=== PATIENT | female | born 1950 | race Caucasian/White ===

== ENCOUNTER 2019-11-08 12:00 | Emergency (ER) | payer MEDICARE, SELFPAY ==
[~2019-11-08] VITALS: Ht 157.5 cm; Wt 75.0 kg
--- NOTE | 2019-11-08 12:01 | NUR ---
PATIENT ARRIVES SOB WITH HER OWN OXYGEN THAT SHE WEARS AROUND CLOCK 2 L COPD HISTORY. SHE IS ANXIOUS AND NOT COOPERATIVE KEEPING MASK ON. SHE COUGHS FREQUENTLY AND IS IN TRIPOD BREATHING POSITION AND USES ACCESORY MUSCLES, 94% ON TWO LITERS. EKG IN PROGRESS, ON MONITOR. RECENT HISTORY OF FREQUENT [place] VISITS WITH ABBE AND PREDNISONE THAT SHE IS ON NOW FOR PNA ACCORDING TO MEDICS AND HER.
--- NOTE | 2019-11-08 12:21 | NUR ---
PATIENT IN BED, RAILS UP. GOT HER TV CONTROL AND EXPLAINED THAT WE NEED HER TO STAY IN BED WHILE WE RUN ALL THE BLOODWORK RECENTLY SENT TO LAB AND COMPLETE OUR TESTS. SHOWS UNDERSTANDING. SHE IS CALMING DOWN AND MUCH MORE COOPERATIVE, AND THANKED STAFF FOR GETTING IV AFTER SHOWING ME HER BRUISED LEFT ARM FROM MULTIPLE IV ATTEMPTS FROM HER [place] VISIT ACCORDING TO HER. SHE IS ON OXYGEN, AND ON MONITOR. AOX4.
[2019-11-08 12:32] LABS: BASOPHILS # (AUTO) 0.12 x10^3/uL (0-0.1); BASOPHILS % (AUTO) 1 % (0-1); EOSINOPHILS % (AUTO) 0 % (1-7); LYMPHOCYTES # (AUTO) 1.02 x10^3/uL (1-3.4); LYMPHOCYTES % (AUTO) 6 % (22-44); MD NO; MEAN CORPUSCULAR HGB CONC 32.7 g/dL (32.4-35.8); MEAN CORPUSCULAR VOLUME 97.9 fL (80-100); MEAN PLATELET VOLUME 8.2 fL (7.4-10.4); MONOCYTES # (AUTO) 0.13 x10^3/uL (0.2-0.8); MONOCYTES % (AUTO) 1 % (2-9); NEUTROPHILS # (AUTO) 14.87 x10^3/uL (1.8-6.8); NEUTROPHILS % (AUTO) 92 % (42-75); PLATELET COUNT 386 x10^3/uL (130-400); RED BLOOD COUNT 4.66 x10^6/uL (3.82-5.3); RED CELL DISTRIBUTION WIDTH 15.6 % (9.6-15.2)
[2019-11-08 12:39] LABS: CALCIUM 8.9 mg/dL (8.5-10.1); CHLORIDE 101 mmol/L (98-107)
[2019-11-08 12:48] LABS: ALANINE AMINOTRANSFERASE 129 U/L (12-78); ALBUMIN 3.1 g/dL (3.4-5.0); ALKALINE PHOSPHATASE 77 U/L (45-117); ANION GAP 7 mmol/L (5-15); BILIRUBIN,TOTAL 0.5 mg/dL (0.2-1.0); CREATININE 0.73 mg/dL (0.55-1.02); TOTAL PROTEIN 6.6 g/dL (6.4-8.2); TROPONIN I < 0.015 ng/mL (0.000-0.045)
--- NOTE | 2019-11-08 13:29 | NUR ---
PT UNABLE TO LAY DOWN ON CT TABLE FOR SCAN-SENT BACK TO HER ROOM
--- NOTE | 2019-11-08 13:32 | NUR ---
PATIENT TAKEN BY TECH TO CT SCAN. PATIENT REFUSED CT SCAN STATING SHE CAN'T LAY ON HER BACK. LET MD'S KNOW
[2019-11-08 13:43] VITALS: BP 130/78
--- NOTE | 2019-11-08 14:33 | NUR ---
DISCHARGE REVIEWED, SHOWS UNDERSTANDING. HELPED EXPLAIN COPD TO PATIENT AND SHE IS ANGRY THAT WE ARE NOT "FIXING" HER LUNGS. TRIED TO HELP EXPLAIN THAT HEALTHY CHOICES AND LIFESTYLE CAN HELP, AND GOT HER AN RX FOR PREDNISONE, AND NO SMOKING.
--- NOTE | 2019-11-08 14:51 | NUR ---
PATIENT NOW STATING HER ESTER DOESN'T DRIVE AND SHE HAS NO RIDE HOME, PLUS SHE IS NOW ADDING THAT SHE DID NOT BRING HER HOME OXYGEN WITH HER, SO PLACED PATIENT BACK ON OXYGEN AND ON MONITOR AND TALK TO MD ABOUT SITUATION.
--- NOTE | 2019-11-08 14:54 | NUR ---
REPORT RECEIVED FROM ANGELIQUE NAJERA. PLAN OF CARE DISCUSSED
--- NOTE | 2019-11-08 14:57 | NUR ---
PATIENT REFUSING [facility] TO GET HOME AND FEELS SHE WILL BE FINE TO GET HOME WITH CAC VOUCHER AND NO OXYGEN. GOT A WHEELCHAIR WITH OXYGEN AND A TECH AND WILL HAVE PATIENT TAKEN ALL THE WAY TO [facility] WITH OXYGEN AND WAIT IN WAITING ROOM WITH OXYGEN UNTIL CAB ARRIVES.
== END 2019-11-08 15:07 | disposition home or self-care (01) ==
LOC: ED 13:22
DX: J44.1 Chronic obstructive pulmonary disease with (acute) exacerbation (principal); R06.00 Dyspnea, unspecified; R94.31 Abnormal electrocardiogram [ECG] [EKG]; Z87.891 Personal history of nicotine dependence
CPT/HCPCS: 36415; 71045; 80053; 83605; 83880; 84145; 84484; 85025; 87040; 93005; 99285

== ENCOUNTER 2019-11-22 09:02 | Inpatient (IN) | payer MEDICARE ==
[~2019-11-22] VITALS: Ht 157.5 cm; Wt 110.7 kg
--- NOTE | 2019-11-22 09:19 | NUR ---
task rn: pt to room and changing into gown.
[2019-11-22] MEDS ORDERED: SODIUM CHLORIDE FLUSH 10ML SYR IVF ONE (09:30)
[2019-11-22 10:01] LABS: MEAN CORPUSCULAR HEMOGLOBIN 32.6 pg (27.0-34.8); MEAN CORPUSCULAR HGB CONC 32.8 g/dL (32.4-35.8); MEAN CORPUSCULAR VOLUME 99.4 fL (80-100); MEAN PLATELET VOLUME 7.9 fL (7.4-10.4); PLATELET COUNT 299 x10^3/uL (130-400); RED BLOOD COUNT 4.65 x10^6/uL (3.82-5.3); RED CELL DISTRIBUTION WIDTH 16.1 % (9.6-15.2)
[2019-11-22 10:06] LABS: INTERNATIONAL NORMALIZED RATIO 0.93 (0.93-1.1); PROTHROMBIN TIME 9.9 Seconds (9.6-11.5)
[2019-11-22 10:09] LABS: ALANINE AMINOTRANSFERASE 52 U/L (12-78); ALBUMIN 2.9 g/dL (3.4-5.0); ANION GAP 6 mmol/L (5-15); CALCIUM 9.2 mg/dL (8.5-10.1); CHLORIDE 102 mmol/L (98-107); CREATININE 0.85 mg/dL (0.55-1.02)
[2019-11-22 10:13] LABS: ALKALINE PHOSPHATASE 71 U/L (45-117); BILIRUBIN,TOTAL 0.8 mg/dL (0.2-1.0); TOTAL PROTEIN 6.3 g/dL (6.4-8.2); TROPONIN I < 0.015 ng/mL (0.000-0.045)
[2019-11-22 10:27] LABS: BASOPHILS # (AUTO) 0.11 x10^3/uL (0-0.1); BASOPHILS % (AUTO) 1 % (0-1); EOSINOPHILS # (AUTO) 0.67 x10^3/uL (0-0.4); EOSINOPHILS % (AUTO) 5 % (1-7); LYMPHOCYTES # (AUTO) 0.93 x10^3/uL (1-3.4); LYMPHOCYTES % (AUTO) 6 % (22-44); MONOCYTES # (AUTO) 0.61 x10^3/uL (0.2-0.8); MONOCYTES % (AUTO) 4 % (2-9); NEUTROPHILS # (AUTO) 12.79 x10^3/uL (1.8-6.8); NEUTROPHILS % (AUTO) 85 % (42-75)
[2019-11-22 10:31] LABS: MD SCAN
--- NOTE | 2019-11-22 10:33 | NUR ---
medicated as ordered, assistance provided to bedside commode
--- NOTE | 2019-11-22 11:52 | NUR ---
PT RESTING IN BED, BLANKET PROVIDED.
[2019-11-22] MEDS ORDERED: SODIUM CHLORIDE 0.9% 1,000ML IVBOLUS ONE (12:00)
[2019-11-22] MEDS ORDERED: CEFTRIAXONE PMX 1GM/50ML 50 ML IVPB ONE (12:00)
[2019-11-22] MEDS ORDERED: CEFTRIAXONE PMX 1GM/50ML 50 ML ONE (12:15)
--- NOTE | 2019-11-22 12:21 | NUR ---
lab at bedside for blood cultures
--- NOTE | 2019-11-22 12:51 | NUR ---
REPORT CALLED TO KHADIJAH MERINO
[2019-11-22] MEDS ORDERED: ACETAMINOPHEN 325 MG TABLET PO PRN (13:00)
[2019-11-22] MEDS ORDERED: ONDANSETRON 2MG/ML, 2ML IVPush PRN (13:00)
[2019-11-22] MEDS ORDERED: hydrALAzine 20 MG/ML, 1ML IVPush PRN (13:00)
[2019-11-22] MEDS ORDERED: IBUPROFEN 600 MG TABLET PO PRN (13:00)
[2019-11-22] MEDS ORDERED: ALBUTEROL SULFATE 2.5 MG/3 ML NPPB PRN (13:30)
[2019-11-22 19:08] VITALS: BP 96/70
[2019-11-22] MEDS: FAMOTIDINE 20 MG TABLET PO SCH (20:39)
[2019-11-22] MEDS ORDERED: FAMOTIDINE 20 MG/2 ML IVPush SCH (21:00)
[2019-11-22 23:21] LABS: MICROSCOPIC NOT IND
[2019-11-23 01:33] VITALS: BP 128/82
[2019-11-23 05:49] LABS: ANION GAP 6 mmol/L (5-15); CALCIUM 8.6 mg/dL (8.5-10.1); CHLORIDE 105 mmol/L (98-107)
[2019-11-23 05:52] LABS: BASOPHILS % (AUTO) 0 % (0-1); EOSINOPHILS # (AUTO) 0.05 x10^3/uL (0-0.4); EOSINOPHILS % (AUTO) 0 % (1-7); LYMPHOCYTES % (AUTO) 4 % (22-44); MD NO; MEAN CORPUSCULAR HEMOGLOBIN 32.4 pg (27.0-34.8); MEAN CORPUSCULAR VOLUME 98.4 fL (80-100); MEAN PLATELET VOLUME 8.1 fL (7.4-10.4); MONOCYTES # (AUTO) 0.13 x10^3/uL (0.2-0.8); MONOCYTES % (AUTO) 1 % (2-9); NEUTROPHILS # (AUTO) 13.22 x10^3/uL (1.8-6.8); NEUTROPHILS % (AUTO) 94 % (42-75); PLATELET COUNT 295 x10^3/uL (130-400); RED BLOOD COUNT 4.12 x10^6/uL (3.82-5.3); RED CELL DISTRIBUTION WIDTH 16.4 % (9.6-15.2)
[2019-11-23 06:01] LABS: CREATININE 0.72 mg/dL (0.55-1.02)
[2019-11-23] MEDS: FAMOTIDINE 20 MG TABLET PO SCH ×2 (10:05→20:03)
[2019-11-23 15:19] VITALS: BP 108/72
[2019-11-23 19:25] VITALS: BP 121/78
[2019-11-23] MEDS ORDERED: FAMOTIDINE 20 MG TABLET PO SCH (21:00)
[2019-11-23] MEDS: INSULIN LISPRO 100 UNITS/ML, PEN SQ-INSULIN SCH (21:14)
[2019-11-24 01:58] VITALS: BP 136/87
[2019-11-24] MEDS: INSULIN LISPRO 100 UNITS/ML, PEN SQ-INSULIN SCH ×4 (07:00→20:26)
[2019-11-24 07:32] VITALS: BP 123/77
[2019-11-24] MEDS: FAMOTIDINE 20 MG TABLET PO SCH ×2 (07:35→20:10)
[2019-11-24] MEDS: ALBUTEROL SULFATE 2.5 MG/3 ML NPPB SCH ×2 (13:50→19:16)
[2019-11-24 14:40] VITALS: BP 107/68
[2019-11-24] MEDS ORDERED: ALBUTEROL/IPRATROPIUM 2.5MG/0.5MG, 3 ML IPPB PRN (17:30)
[2019-11-24] MEDS: BUDESONIDE 0.5 MG/2 ML INHA INH SCH (19:16)
[2019-11-24 20:05] VITALS: BP 104/65
[2019-11-25 03:45] VITALS: BP 103/82
[2019-11-25] MEDS: ALBUTEROL SULFATE 2.5 MG/3 ML NPPB SCH ×3 (06:46→18:49)
[2019-11-25] MEDS: BUDESONIDE 0.5 MG/2 ML INHA INH SCH ×2 (06:46→18:49)
[2019-11-25] MEDS: INSULIN LISPRO 100 UNITS/ML, PEN SQ-INSULIN SCH ×4 (07:00→20:21)
[2019-11-25] MEDS: FAMOTIDINE 20 MG TABLET PO SCH ×2 (07:32→20:11)
[2019-11-25 07:39] VITALS: BP 117/72
[2019-11-25 14:30] VITALS: BP 134/81
[2019-11-25 19:52] VITALS: BP 116/74
[2019-11-26] MEDS: ALBUTEROL SULFATE 2.5 MG/3 ML NPPB SCH ×3 (00:09→14:30)
[2019-11-26 02:35] VITALS: BP 120/77
[2019-11-26] MEDS: INSULIN LISPRO 100 UNITS/ML, PEN SQ-INSULIN SCH ×2 (07:00→11:00)
[2019-11-26] MEDS: FAMOTIDINE 20 MG TABLET PO SCH (07:29)
[2019-11-26] MEDS: BUDESONIDE 0.5 MG/2 ML INHA INH SCH (07:30)
[2019-11-26 08:06] VITALS: BP 133/85
[2019-11-26 13:19] VITALS: BP 135/85
[2019-11-26] MEDS ORDERED: ALBU2.5V NPPB (15:55)
[2019-11-26] MEDS ORDERED: PRED20TA PO (15:55)
[2019-11-26] MEDS ORDERED: BUDE0.5A INH (15:55)
[2019-11-26] MEDS ORDERED: FAMO20TA7 PO (15:55)
== END 2019-11-26 16:55 | disposition home or self-care (01) | DRG 607 ==
LOC: ED 10:27 → EDIP 11:58 → 3N 13:30
PROVIDERS: ADMIT Hospitalist; ATTEND Hospitalist
DX: L27.0 Generalized skin eruption due to drugs and medicaments taken internally (principal); Z68.41 Body mass index [BMI] 40.0-44.9, adult; I89.0 Lymphedema, not elsewhere classified; E66.9 Obesity, unspecified; D72.829 Elevated white blood cell count, unspecified; J44.9 Chronic obstructive pulmonary disease, unspecified; T36.8X5A Adverse effect of other systemic antibiotics, initial encounter; I51.7 Cardiomegaly; Z99.81 Dependence on supplemental oxygen; Z87.891 Personal history of nicotine dependence; Z88.6 Allergy status to analgesic agent; Z88.0 Allergy status to penicillin
CPT/HCPCS: 36415; 71045; 80048; 80053; 81003; 82962; 83605; 83880; 84443; 84484; 85025; 85610; 87040; 94640; 96374; 99285; G0378; J0696; J7613; J7626; J1815; J7030; J7512

== ENCOUNTER 2019-12-01 16:58 | Emergency (ER) | payer MEDICARE ==
[~2019-12-01] VITALS: Ht 157.5 cm; Wt 98.0 kg
[~2019-12-01 16:58] MED LIST: ALBU2.5V NPPB; BUDE0.5A INH; FAMO20TA7 PO; PRED20TA PO
--- NOTE | 2019-12-01 17:09 | NUR ---
PT BIB EMS FOR SOB. PT HAS HISTORY OF COPD AND ASTHMA AND SAYS HER INHALERS WERE NOT HELPING HER. PT NORMALLY WEARS 2 LITERS 02 23/01 FOR THE PAT 4 MONTHS. PT IS CURRERNTLY 95% ON 2LITERS. PT WAS HOSPITALIZED A FEW MONTHS AGO FOR COPD EXACERBATION AND SAYS THIS FEELS SIMILAR TO THAT. PT IS CONNECTED TO THE MONITORING EQUIPMENT. BLANKET PROVIDED.
[2019-12-01 17:44] VITALS: BP 99/71
[2019-12-01 18:14] LABS: BASOPHILS # (AUTO) 0.06 x10^3/uL (0-0.1); BASOPHILS % (AUTO) 1 % (0-1); EOSINOPHILS # (AUTO) 0.28 x10^3/uL (0-0.4); EOSINOPHILS % (AUTO) 2 % (1-7); LYMPHOCYTES # (AUTO) 2.23 x10^3/uL (1-3.4); LYMPHOCYTES % (AUTO) 17 % (22-44); MD NO; MEAN CORPUSCULAR HEMOGLOBIN 32.5 pg (27.0-34.8); MEAN CORPUSCULAR HGB CONC 33.3 g/dL (32.4-35.8); MEAN CORPUSCULAR VOLUME 97.7 fL (80-100); MEAN PLATELET VOLUME 7.7 fL (7.4-10.4); MONOCYTES % (AUTO) 7 % (2-9); NEUTROPHILS # (AUTO) 9.35 x10^3/uL (1.8-6.8); NEUTROPHILS % (AUTO) 73 % (42-75); PLATELET COUNT 349 x10^3/uL (130-400); RED BLOOD COUNT 4.54 x10^6/uL (3.82-5.3); RED CELL DISTRIBUTION WIDTH 16.2 % (9.6-15.2)
[2019-12-01 18:24] LABS: ALANINE AMINOTRANSFERASE 73 U/L (12-78); ANION GAP 8 mmol/L (5-15); CALCIUM 9.2 mg/dL (8.5-10.1); CHLORIDE 99 mmol/L (98-107)
[2019-12-01 18:28] LABS: ALKALINE PHOSPHATASE 75 U/L (45-117); BILIRUBIN,TOTAL 1.1 mg/dL (0.2-1.0); CREATININE 0.82 mg/dL (0.55-1.02); TOTAL PROTEIN 6.2 g/dL (6.4-8.2); TROPONIN I < 0.015 ng/mL (0.000-0.045)
[2019-12-01] MEDS ORDERED: SODIUM CHLORIDE FLUSH 10ML SYR IVF ONE (19:00)
[2019-12-01] MEDS ORDERED: AZITHROMYCIN 500 MG TABLET ONE (19:13)
[2019-12-01] MEDS ORDERED: AZITHROMYCIN 500 MG TABLET PO ONE (19:30)
== END 2019-12-01 20:03 | disposition home or self-care (01) ==
LOC: ED 17:57
DX: J15.9 Unspecified bacterial pneumonia (principal); R94.31 Abnormal electrocardiogram [ECG] [EKG]; Z87.891 Personal history of nicotine dependence; J44.9 Chronic obstructive pulmonary disease, unspecified
CPT/HCPCS: 36415; 71045; 80053; 83880; 84484; 85025; 93005; 99285

== ENCOUNTER 2020-01-12 22:13 | Emergency (ER) | payer MEDICARE ==
[~2020-01-12] VITALS: Ht 157.5 cm; Wt 78.0 kg
--- NOTE | 2020-01-12 22:21 | NUR ---
PT BIBA FOR SWELLING AND WEEPING FLUID FROM LOWER RIGHT LEG X4 DAYS. PT REPORTS ONLY HX OF COPD. PLACED ON CARDIAC AND VITALS SIGNS MONITORS. SAFETY FALL PRECAUTIONS IN PLACE. CALL LIGHT GIVEN TO PT.
[2020-01-12 22:58] LABS: BASOPHILS # (AUTO) 0.02 x10^3/uL (0-0.1); BASOPHILS % (AUTO) 0 % (0-1); EOSINOPHILS # (AUTO) 0.27 x10^3/uL (0-0.4); EOSINOPHILS % (AUTO) 2 % (1-7); LYMPHOCYTES % (AUTO) 21 % (22-44); MD NO; MEAN CORPUSCULAR HEMOGLOBIN 32.1 pg (27.0-34.8); MEAN CORPUSCULAR VOLUME 97.2 fL (80-100); MEAN PLATELET VOLUME 8.5 fL (7.4-10.4); MONOCYTES # (AUTO) 0.63 x10^3/uL (0.2-0.8); MONOCYTES % (AUTO) 6 % (2-9); NEUTROPHILS % (AUTO) 71 % (42-75); PLATELET COUNT 305 x10^3/uL (130-400); RED BLOOD COUNT 4.29 x10^6/uL (3.82-5.3); RED CELL DISTRIBUTION WIDTH 15.9 % (9.6-15.2)
[2020-01-12 23:09] LABS: ALANINE AMINOTRANSFERASE 25 U/L (12-78); ALBUMIN 3.5 g/dL (3.4-5.0); ANION GAP 6 mmol/L (5-15); CALCIUM 9.2 mg/dL (8.5-10.1); CHLORIDE 105 mmol/L (98-107); CREATININE 0.88 mg/dL (0.55-1.02)
[2020-01-12 23:14] LABS: ALKALINE PHOSPHATASE 78 U/L (45-117); BILIRUBIN,TOTAL 0.6 mg/dL (0.2-1.0); TROPONIN I < 0.015 ng/mL (0.000-0.045)
[2020-01-13 00:02] VITALS: BP 121/78
--- NOTE | 2020-01-13 00:07 | NUR ---
PT GETTING DRESSED FOR DC.
== END 2020-01-13 00:18 | disposition home or self-care (01) ==
LOC: ED 23:45
DX: Q82.0 Hereditary lymphedema (principal); R94.31 Abnormal electrocardiogram [ECG] [EKG]; J44.9 Chronic obstructive pulmonary disease, unspecified; Z87.891 Personal history of nicotine dependence
CPT/HCPCS: 36415; 80053; 84484; 85025; 93005; 99284

== ENCOUNTER 2020-02-03 17:47 | Emergency (ER) | payer MEDICARE ==
[~2020-02-03] VITALS: Ht 157.5 cm; Wt 77.3 kg
[2020-02-03] MEDS ORDERED: SODIUM CHLORIDE 0.9% 1,000 ML IV ONE (19:34)
--- NOTE | 2020-02-03 19:54 | NUR ---
Pt brought back to room in personal wheelchair, pt states she has bilat leg swelling and needs a refill on her lasix
[2020-02-03] MEDS ORDERED: SODIUM CHLORIDE FLUSH 10ML SYR IVF ONE (20:00)
[2020-02-03 20:39] VITALS: BP 129/71
== END 2020-02-03 20:42 | disposition home or self-care (01) ==
LOC: ED 20:00
DX: I50.9 Heart failure, unspecified (principal); R60.0 Localized edema; Z76.0 Encounter for issue of repeat prescription; J44.9 Chronic obstructive pulmonary disease, unspecified
CPT/HCPCS: 99281

== ENCOUNTER 2020-02-15 13:29 | Emergency (ER) | payer MEDICARE ==
[~2020-02-15] VITALS: Ht 160 cm; Wt 82.0 kg
[~2020-02-15 13:29] MED LIST changes: +FURO40TA6 PO; +POTA20TA6 PO
[2020-02-15 13:38] VITALS: BP 126/80
--- NOTE | 2020-02-15 14:00 | NUR ---
PT C/O FOREIGN BODY SENSATION IN THROAT, PT DOESN'T KNOW WHEN SHE FIRST FELT IT. PT TALKING IN FULL SENTANCES, NO RESP DISTRESS NOTED. PT ALSO C/O RASH TO FRONT TORSO THAT STARTED TODAY. CONNECTED TO MONITORING. CALL LIGHT IN REACH.
[2020-02-15] MEDS ORDERED: FAMOTIDINE 20 MG TABLET ONE (14:46)
--- NOTE | 2020-02-15 14:49 | NUR ---
PEPCID ADMIN PER AUG. PT REFUSED PREDNISONE, STATING SHE'S ALLERGIC. ADDED TO ALLERGIES.
--- NOTE | 2020-02-15 14:55 | NUR ---
ALL RESULTS ARE BACK AT THIS TIME. CHART UP FOR RECHECK
[2020-02-15] MEDS ORDERED: FAMOTIDINE 20 MG TABLET PO ONE (15:00)
== END 2020-02-15 16:14 | disposition home or self-care (01) ==
LOC: ED 15:34
DX: R07.0 Pain in throat (principal); R00.0 Tachycardia, unspecified; J44.9 Chronic obstructive pulmonary disease, unspecified; I50.9 Heart failure, unspecified; Z87.891 Personal history of nicotine dependence
CPT/HCPCS: 70360; 99283

== ENCOUNTER 2020-02-25 07:04 | Inpatient (IN) | payer MEDICARE ==
[~2020-02-25] VITALS: Ht 157.5 cm; Wt 115.2 kg
[2020-02-25 08:08] LABS: MEAN CORPUSCULAR HEMOGLOBIN 31.7 pg (27.0-34.8); MEAN CORPUSCULAR HGB CONC 32.7 g/dL (32.4-35.8); MEAN PLATELET VOLUME 8.4 fL (7.4-10.4); PLATELET COUNT 324 x10^3/uL (130-400); RED BLOOD COUNT 4.71 x10^6/uL (3.82-5.3); RED CELL DISTRIBUTION WIDTH 15.2 % (9.6-15.2)
[2020-02-25 08:20] LABS: ALBUMIN 3.4 g/dL (3.4-5.0); ANION GAP 10 mmol/L (5-15); CALCIUM 9.2 mg/dL (8.5-10.1); CHLORIDE 95 mmol/L (98-107)
[2020-02-25 08:26] LABS: ALANINE AMINOTRANSFERASE 54 U/L (12-78); ALKALINE PHOSPHATASE 84 U/L (45-117); BILIRUBIN,TOTAL 1.5 mg/dL (0.2-1.0); TOTAL PROTEIN 7.2 g/dL (6.4-8.2); TROPONIN I < 0.015 ng/mL (0.000-0.045)
--- NOTE | 2020-02-25 08:29 | NUR ---
Denzel chavez in [facility] - 02/25/20 at 0833 by [email or web address] BREAK RN: 20 GAUGE IV STARTED, VITAL SIGNS WITHIN NORMAL LIMITS, PATIENT SITTING UP IN GURNEY WATCHING TV. CALL LIGHT WITHIN REACH, SIDE RAILS UP X2, NO FURTHER NEEDS AT THIS TIME.
--- NOTE | 2020-02-25 08:33 | NUR ---
BREAK RN: 22 GAUGE IV STARTED, PATIENT SITTING UP IN [facility] WATCHING TV. CALL LIGHT WITHIN REACH, SIDE RAILS UP X2, NO FURTHER NEEDS AT THIS TIME.
[2020-02-25 08:41] LABS: MD YES
[2020-02-25 08:42] LABS: LYMPH#(MANUAL) 1.78 x10^3/uL (1-3.4); LYMPHS% (MANUAL) 6 % (22-44)
[2020-02-25 08:43] LABS: <PLATELET ESTIMATE> ADEQUATE; <PLT MORPHOLOGY> NORMAL PLT MORPH; <RBC MORPHOLOGY> NORMAL; MONOS#(MANUAL) 0.59 x10^3/uL (0.3-2.7); MONOS% (MANUAL) 2 % (2-9); SEG#(MANUAL) 27.32 x10^3/uL (1.8-6.8); SEGS% (MANUAL) 92 % (42-75)
[2020-02-25] MEDS ORDERED: SODIUM CHLORIDE 0.9% 1,000ML IVBOLUS ONE (09:00)
[2020-02-25] MEDS ORDERED: CEFEPIME 1 GM in DEXTROSE 5% 50 ML IV ONE (09:30)
--- NOTE | 2020-02-25 10:05 | NUR ---
PT UPRIGHT ON GURNEY AWAKE WITH FREQUENT C/O HUNGER, NIURKA CRACKERS GIVEN PER DR SULLIVAN [place], [place] BUT RESPONDS TO STAFF QUESTIONS, NAD AT REST & WITH SUPPL O2 IN PLACE, COMFORT MEASURES PROVIDED, CALL LIGHT WITHIN REACH.
[2020-02-25 10:35] LABS: MICROSCOPIC AUTO
[2020-02-25] MEDS ORDERED: POTASSIUM CHLORIDE 40 MEQ in SODIUM CHLORIDE 0.9% 500 ML IV ONE (11:00)
--- NOTE | 2020-02-25 12:01 | NUR ---
Pt to be admitted to MEDICAL, room 335. Report called to DEMI MERINO.
[2020-02-25] MEDS ORDERED: VANCOMYCIN PER PHARMACY MC PRN (12:30)
[2020-02-25] MEDS ORDERED: POLYETHYLENE GLYCOL 17 GM PACKET PO PRN (12:30)
[2020-02-25] MEDS ORDERED: ONDANSETRON 2MG/ML, 2ML IVPush PRN (12:30)
[2020-02-25] MEDS ORDERED: ONDANSETRON ODT 4 MG PO PRN (12:30)
[2020-02-25] MEDS ORDERED: DOCUSATE 100 MG CAPSULE PO PRN (12:30)
[2020-02-25] MEDS ORDERED: PHARMACOKINETIC MONITORING MC PRN (13:00)
[2020-02-25] MEDS ORDERED: VANCOMYCIN 1,600 MG in SODIUM CHLORIDE 0.9% 250 ML IV SCH (13:00)
[2020-02-25] MEDS: POTASSIUM CHLORIDE 20 MEQ TAB.ER.PRT PO SCH (13:45)
[2020-02-25] MEDS: FUROSEMIDE 40 MG/4 ML IV SCH ×2 (13:52→19:00)
[2020-02-25] MEDS: ENOXAPARIN 40 MG/0.4 ML SQ SCH (14:07)
[2020-02-25 15:02] VITALS: BP 108/53
[2020-02-25] MEDS: ACETAMINOPHEN 325 MG TABLET PO PRN (16:13)
[2020-02-25] MEDS: ALBUTEROL HFA 90 MCG/SPRAY INH SCH ×2 (16:14→21:24)
[2020-02-25] MEDS: CEFEPIME 2 GM in DEXTROSE 5% 100 ML IV SCH (18:42)
[2020-02-25 19:14] VITALS: BP 106/70
[2020-02-25] MEDS ORDERED: BUDESONIDE 0.5 MG/2 ML INHA INH SCH (21:00)
[2020-02-26] MEDS: POTASSIUM CHLORIDE 20 MEQ TAB.ER.PRT PO SCH ×3 (00:52→20:51)
[2020-02-26 00:59] VITALS: BP 102/63
[2020-02-26] MEDS: CEFEPIME 2 GM in DEXTROSE 5% 100 ML IV SCH ×2 (02:10→11:19)
[2020-02-26] MEDS: ACETAMINOPHEN 325 MG TABLET PO PRN (03:14)
[2020-02-26 05:32] LABS: MEAN CORPUSCULAR HEMOGLOBIN 32.6 pg (27.0-34.8); MEAN CORPUSCULAR HGB CONC 33.3 g/dL (32.4-35.8); MEAN CORPUSCULAR VOLUME 97.7 fL (80-100); MEAN PLATELET VOLUME 8.5 fL (7.4-10.4); PLATELET COUNT 260 x10^3/uL (130-400); RED BLOOD COUNT 4.14 x10^6/uL (3.82-5.3); RED CELL DISTRIBUTION WIDTH 15.5 % (9.6-15.2)
[2020-02-26 05:45] LABS: ALBUMIN 2.9 g/dL (3.4-5.0); ANION GAP 4 mmol/L (5-15); CALCIUM 8.8 mg/dL (8.5-10.1); CHLORIDE 96 mmol/L (98-107)
[2020-02-26 05:53] LABS: ALANINE AMINOTRANSFERASE 100 U/L (12-78); ALKALINE PHOSPHATASE 74 U/L (45-117); BILIRUBIN,TOTAL 1.5 mg/dL (0.2-1.0); CREATININE 0.87 mg/dL (0.55-1.02); TOTAL PROTEIN 6.5 g/dL (6.4-8.2)
[2020-02-26 06:17] LABS: HCT (SEDRATE) 40.4 % (34.6-47.8)
[2020-02-26 06:25] LABS: MD YES
[2020-02-26 06:27] LABS: <PLATELET ESTIMATE> ADEQUATE; <PLT MORPHOLOGY> NORMAL PLT MORPH; <RBC MORPHOLOGY> NORMAL; BAND#(MANUAL) 0.36 x10^3/uL; BANDS%(MANUAL) 1 % (0-7); LYMPH#(MANUAL) 2.14 x10^3/uL (1-3.4); LYMPHS% (MANUAL) 6 % (22-44); MONOS#(MANUAL) 2.49 x10^3/uL (0.3-2.7); MONOS% (MANUAL) 7 % (2-9); SEG#(MANUAL) 30.62 x10^3/uL (1.8-6.8); SEGS% (MANUAL) 86 % (42-75)
[2020-02-26] MEDS: ALBUTEROL HFA 90 MCG/SPRAY INH SCH ×3 (11:19→20:52)
[2020-02-26] MEDS: ENOXAPARIN 40 MG/0.4 ML SQ SCH (11:20)
[2020-02-26 12:29] VITALS: BP 116/59
[2020-02-26] MEDS: VANCOMYCIN 2,200 MG in SODIUM CHLORIDE 0.9% 500 ML IV SCH (14:36)
[2020-02-26 18:38] VITALS: BP 107/65
[2020-02-26] MEDS: FUROSEMIDE 20 MG TABLET PO SCH (18:43)
[2020-02-26] MEDS ORDERED: CEFEPIME 2 GM in DEXTROSE 5% 100 ML IV SCH (23:00)
[2020-02-27] MEDS: ACETAMINOPHEN 325 MG TABLET PO PRN ×2 (00:10→21:57)
[2020-02-27 00:31] VITALS: BP 105/67
[2020-02-27 06:20] LABS: ALBUMIN 2.6 g/dL (3.4-5.0); ANION GAP 9 mmol/L (5-15); CALCIUM 9.2 mg/dL (8.5-10.1); CHLORIDE 99 mmol/L (98-107)
[2020-02-27 06:23] LABS: ALANINE AMINOTRANSFERASE 85 U/L (12-78); ALKALINE PHOSPHATASE 82 U/L (45-117); BILIRUBIN,TOTAL 0.8 mg/dL (0.2-1.0); CREATININE 0.61 mg/dL (0.55-1.02); TOTAL PROTEIN 6.7 g/dL (6.4-8.2)
[2020-02-27 06:40] VITALS: BP 110/71
[2020-02-27 06:42] LABS: MD YES; MEAN CORPUSCULAR HEMOGLOBIN 32.1 pg (27.0-34.8); MEAN CORPUSCULAR HGB CONC 32.8 g/dL (32.4-35.8); MEAN CORPUSCULAR VOLUME 97.8 fL (80-100); MEAN PLATELET VOLUME 9.3 fL (7.4-10.4); PLATELET COUNT 211 x10^3/uL (130-400); RED BLOOD COUNT 4.14 x10^6/uL (3.82-5.3); RED CELL DISTRIBUTION WIDTH 15.2 % (9.6-15.2)
[2020-02-27 06:44] LABS: <PLATELET ESTIMATE> ADEQUATE; <RBC MORPHOLOGY> NORMAL; LARGE PLATELETS 1+; LYMPH#(MANUAL) 2.58 x10^3/uL (1-3.4); LYMPHS% (MANUAL) 10 % (22-44); MONOS#(MANUAL) 0.77 x10^3/uL (0.3-2.7); MONOS% (MANUAL) 3 % (2-9); SEG#(MANUAL) 22.45 x10^3/uL (1.8-6.8); SEGS% (MANUAL) 87 % (42-75)
[2020-02-27 08:54] LABS: HCT (SEDRATE) 40.8 % (34.6-47.8)
[2020-02-27] MEDS: FUROSEMIDE 20 MG TABLET PO SCH ×2 (09:33→16:04)
[2020-02-27] MEDS: POTASSIUM CHLORIDE 20 MEQ TAB.ER.PRT PO SCH ×2 (09:33→21:09)
[2020-02-27] MEDS: VANCOMYCIN 2,200 MG in SODIUM CHLORIDE 0.9% 500 ML IV SCH (09:33)
[2020-02-27] MEDS: ALBUTEROL HFA 90 MCG/SPRAY INH SCH ×3 (09:33→21:09)
[2020-02-27 12:16] VITALS: BP 98/55
[2020-02-27] MEDS: ENOXAPARIN 40 MG/0.4 ML SQ SCH (12:26)
[2020-02-27 14:06] VITALS: BP 108/68
[2020-02-27 19:30] VITALS: BP 109/62
[2020-02-28 00:36] VITALS: BP 105/56
[2020-02-28 07:29] LABS: BASOPHILS # (AUTO) 0.04 x10^3/uL (0-0.1); BASOPHILS % (AUTO) 0 % (0-1); EOSINOPHILS # (AUTO) 0.17 x10^3/uL (0-0.4); EOSINOPHILS % (AUTO) 1 % (1-7); LYMPHOCYTES # (AUTO) 1.62 x10^3/uL (1-3.4); LYMPHOCYTES % (AUTO) 13 % (22-44); MD NO; MEAN CORPUSCULAR HGB CONC 32.3 g/dL (32.4-35.8); MEAN PLATELET VOLUME 8.2 fL (7.4-10.4); MONOCYTES # (AUTO) 0.46 x10^3/uL (0.2-0.8); MONOCYTES % (AUTO) 4 % (2-9); NEUTROPHILS # (AUTO) 9.83 x10^3/uL (1.8-6.8); NEUTROPHILS % (AUTO) 81 % (42-75); PLATELET COUNT 278 x10^3/uL (130-400); RED BLOOD COUNT 3.88 x10^6/uL (3.82-5.3); RED CELL DISTRIBUTION WIDTH 15.3 % (9.6-15.2)
[2020-02-28 07:36] LABS: ALANINE AMINOTRANSFERASE 65 U/L (12-78); ALBUMIN 2.6 g/dL (3.4-5.0); ANION GAP 6 mmol/L (5-15); CHLORIDE 100 mmol/L (98-107); CREATININE 0.73 mg/dL (0.55-1.02)
[2020-02-28 07:39] LABS: ALKALINE PHOSPHATASE 83 U/L (45-117); BILIRUBIN,TOTAL 0.7 mg/dL (0.2-1.0); TOTAL PROTEIN 6.7 g/dL (6.4-8.2)
[2020-02-28 08:03] VITALS: BP 99/54
[2020-02-28] MEDS: FUROSEMIDE 20 MG TABLET PO SCH ×2 (08:18→17:16)
[2020-02-28] MEDS: POTASSIUM CHLORIDE 20 MEQ TAB.ER.PRT PO SCH ×2 (08:18→19:40)
[2020-02-28] MEDS: ALBUTEROL HFA 90 MCG/SPRAY INH SCH ×3 (08:18→19:40)
[2020-02-28] MEDS ORDERED: VANCOMYCIN 2,200 MG in SODIUM CHLORIDE 0.9% 500 ML IV SCH (09:30)
[2020-02-28] MEDS ORDERED: FENTANYL PF 100 MCG/2ML IVPush PRN (11:00)
[2020-02-28] MEDS: ENOXAPARIN 40 MG/0.4 ML SQ SCH (12:30)
[2020-02-28 14:22] VITALS: BP 106/54
[2020-02-28 19:42] VITALS: BP 103/68
[2020-02-28] MEDS ORDERED: MAGNESIUM HYDROXIDE 8%, 30ML UDC PO PRN (22:00)
[2020-02-29] MEDS ORDERED: GUAIFENESIN 200 MG TABLET PO PRN (01:00)
[2020-02-29 03:20] VITALS: BP 115/75
[2020-02-29 05:02] LABS: BASOPHILS # (AUTO) 0.02 x10^3/uL (0-0.1); BASOPHILS % (AUTO) 0 % (0-1); EOSINOPHILS # (AUTO) 0.16 x10^3/uL (0-0.4); EOSINOPHILS % (AUTO) 1 % (1-7); LYMPHOCYTES # (AUTO) 1.75 x10^3/uL (1-3.4); LYMPHOCYTES % (AUTO) 13 % (22-44); MD NO; MEAN CORPUSCULAR HEMOGLOBIN 31.9 pg (27.0-34.8); MEAN CORPUSCULAR HGB CONC 32.5 g/dL (32.4-35.8); MEAN CORPUSCULAR VOLUME 98.2 fL (80-100); MEAN PLATELET VOLUME 8.7 fL (7.4-10.4); MONOCYTES # (AUTO) 0.77 x10^3/uL (0.2-0.8); MONOCYTES % (AUTO) 6 % (2-9); NEUTROPHILS # (AUTO) 10.42 x10^3/uL (1.8-6.8); NEUTROPHILS % (AUTO) 79 % (42-75); PLATELET COUNT 291 x10^3/uL (130-400); RED BLOOD COUNT 4.01 x10^6/uL (3.82-5.3); RED CELL DISTRIBUTION WIDTH 15.3 % (9.6-15.2)
[2020-02-29 05:30] LABS: HCT (SEDRATE) 39.4 % (34.6-47.8)
[2020-02-29 07:21] VITALS: BP 123/78
== END 2020-02-29 08:43 | disposition left against medical advice (07) | DRG 871 ==
LOC: ED 07:31 → EDIP 10:17 → 3N 11:39
PROVIDERS: ADMIT Family Medicine; ATTEND Family Medicine
DX: A41.9 Sepsis, unspecified organism (principal); I50.33 Acute on chronic diastolic (congestive) heart failure; L03.114 Cellulitis of left upper limb; J96.11 Chronic respiratory failure with hypoxia; J98.11 Atelectasis; L02.91 Cutaneous abscess, unspecified; J44.1 Chronic obstructive pulmonary disease with (acute) exacerbation; Z68.42 Body mass index [BMI] 45.0-49.9, adult; J44.9 Chronic obstructive pulmonary disease, unspecified; L02.434 Carbuncle of left upper limb; B95.62 Methicillin resistant Staphylococcus aureus infection as the cause of diseases classified elsewhere; E66.01 Morbid (severe) obesity due to excess calories; E87.6 Hypokalemia; I89.0 Lymphedema, not elsewhere classified; K76.0 Fatty (change of) liver, not elsewhere classified; K80.20 Calculus of gallbladder without cholecystitis without obstruction; Z88.0 Allergy status to penicillin; Z88.5 Allergy status to narcotic agent; Z88.8 Allergy status to other drugs, medicaments and biological substances; M25.432 Effusion, left wrist; Z79.899 Other long term (current) drug therapy; Z91.018 Allergy to other foods; Z87.891 Personal history of nicotine dependence; D72.829 Elevated white blood cell count, unspecified
CPT/HCPCS: 36415; 71045; 76700; 80053; 81001; 83605; 83735; 83880; 84145; 84484; 85025; 85651; 86140; 86141; 87040; 87070; 87077; 87086; 87147; 87186; 87205; 93005; 96365; 99285; G0378; J0692; J1650; J1940; J2405; J3370; J3480; J7030; J7040; J7050

== ENCOUNTER 2020-03-06 07:57 | Emergency (ER) | payer MEDICARE ==
[~2020-03-06] VITALS: Ht 157.5 cm; Wt 107.6 kg
[2020-03-06 08:06] VITALS: BP 103/61
== END 2020-03-06 09:45 | disposition home or self-care (01) ==
LOC: ED 08:39
DX: S09.90XA Unspecified injury of head, initial encounter (principal); J44.9 Chronic obstructive pulmonary disease, unspecified; I50.9 Heart failure, unspecified; W01.0XXA Fall on same level from slipping, tripping and stumbling without subsequent striking against object, initial encounter; Y93.01 Activity, walking, marching and hiking; Y92.098 Other place in other non-institutional residence as the place of occurrence of the external cause; Y99.8 Other external cause status
CPT/HCPCS: 70450; 99284

== ENCOUNTER 2020-03-23 23:52 | Inpatient (IN) | payer MEDICARE ==
[~2020-03-23] VITALS: Ht 158.8 cm; Wt 111.3 kg
--- NOTE | 2020-03-24 00:19 | NUR ---
REVERBERATORY SKIMMER: PT TO ROOM FROM LOBBY
--- NOTE | 2020-03-24 00:42 | NUR ---
PT HAVING SOB SINCE "ABOUT AUGUST" PT STATES BEING SEEN MULTIPLE TIMES AND UNABLE TO FIND SOMETHING THAT HELPS. PT SEEN BY ERPM, PLACED ON ALL MONITORS, NO NEEDS AT THIS TIME, SAFETY MEASURES IN PLACE, ALL QUESTIONS ANSWERED
--- NOTE | 2020-03-24 01:13 | NUR ---
PT. NOW STATING "I NEED SOME OXYGEN, I WEAR IT AT HOME." PER CHART REVIEW PT. DOES WEAR 2.5 L O2 VIA NC 23/01 AT HOME. PT. STATES "DR. GAMINO HAS ME DOWN TO 2 AND I ONLY WEAR IT SOMETIMES NOW". O2 PROVIDED TO PT. PER REQUEST. PT. O2 SAT >92% ON RA HOWEVER. LAB AT FOR BLOOD DRAW. PT. PROVIDED WITH WATER AFTER OK FROM DR. SWANSON.
[2020-03-24 01:30] LABS: BASOPHILS # (AUTO) 0.04 x10^3/uL (0-0.1); BASOPHILS % (AUTO) 0 % (0-1); EOSINOPHILS # (AUTO) 0.16 x10^3/uL (0-0.4); EOSINOPHILS % (AUTO) 1 % (1-7); LYMPHOCYTES # (AUTO) 2.36 x10^3/uL (1-3.4); LYMPHOCYTES % (AUTO) 19 % (22-44); MD NO; MEAN CORPUSCULAR HEMOGLOBIN 31.8 pg (27.0-34.8); MEAN CORPUSCULAR HGB CONC 32.8 g/dL (32.4-35.8); MEAN PLATELET VOLUME 8.9 fL (7.4-10.4); MONOCYTES # (AUTO) 0.51 x10^3/uL (0.2-0.8); MONOCYTES % (AUTO) 4 % (2-9); NEUTROPHILS # (AUTO) 9.34 x10^3/uL (1.8-6.8); NEUTROPHILS % (AUTO) 75 % (42-75); PLATELET COUNT 346 x10^3/uL (130-400); RED BLOOD COUNT 4.26 x10^6/uL (3.82-5.3); RED CELL DISTRIBUTION WIDTH 15.8 % (9.6-15.2)
[2020-03-24 01:40] LABS: ALBUMIN 3.2 g/dL (3.4-5.0); ANION GAP 5 mmol/L (5-15); CALCIUM 9.1 mg/dL (8.5-10.1); CHLORIDE 105 mmol/L (98-107)
[2020-03-24 01:45] LABS: ALANINE AMINOTRANSFERASE 32 U/L (12-78); ALKALINE PHOSPHATASE 91 U/L (45-117); BILIRUBIN,TOTAL 0.5 mg/dL (0.2-1.0); CREATININE 0.79 mg/dL (0.55-1.02); TOTAL PROTEIN 7.4 g/dL (6.4-8.2); TROPONIN I < 0.015 ng/mL (0.000-0.045)
[2020-03-24] MEDS ORDERED: FUROSEMIDE 40 MG/4 ML ONE (01:53)
[2020-03-24] MEDS ORDERED: DOXYCYCLINE 100 MG in DEXTROSE 5% 250 ML IV ONE (02:00)
[2020-03-24] MEDS ORDERED: FUROSEMIDE 40 MG/4 ML IV ONE ×2 (02:00)
--- NOTE | 2020-03-24 02:17 | NUR ---
PT MEDICATED PER EMAR, BLOOD CULTURE DRAWN PRIOR TO ABX ADMIN.
[2020-03-24] MEDS ORDERED: DOCUSATE 100 MG CAPSULE PO PRN (02:30)
[2020-03-24] MEDS ORDERED: ACETAMINOPHEN 325 MG TABLET PO PRN (02:30)
[2020-03-24] MEDS ORDERED: PROMETHAZINE 25 MG/ML, 1ML IM PRN (02:30)
[2020-03-24] MEDS ORDERED: ONDANSETRON ODT 4 MG PO PRN (02:30)
[2020-03-24] MEDS ORDERED: POLYETHYLENE GLYCOL 17 GM PACKET PO PRN (02:30)
[2020-03-24] MEDS ORDERED: VANCOMYCIN PER PHARMACY MC PRN (02:30)
[2020-03-24] MEDS ORDERED: morphine SULFATE 10 MG/ML, 1ML IVPush PRN (02:30)
[2020-03-24] MEDS ORDERED: ENOXAPARIN 40 MG/0.4 ML SQ SCH (02:30)
[2020-03-24] MEDS ORDERED: BISACODYL 10 MG SUPP PR PRN (02:30)
[2020-03-24] MEDS ORDERED: hydrALAzine 20 MG/ML, 1ML IVPush PRN (02:30)
[2020-03-24] MEDS ORDERED: VANCOMYCIN PMX 1GM/200ML 200 ML IV ONE (02:30)
[2020-03-24] MEDS ORDERED: ONDANSETRON 2MG/ML, 2ML IVPush PRN (02:30)
--- NOTE | 2020-03-24 02:42 | NUR ---
REPORT GIVEN TO ANGELIQUE RAHMAN.
[2020-03-24 02:55] LABS: FREE T4 (FREE THYROXINE) 0.72 ng/dL (0.76-1.46)
[2020-03-24 03:32] VITALS: BP 108/81
[2020-03-24] MEDS ORDERED: VANCOMYCIN 2,500 MG in SODIUM CHLORIDE 0.9% 500 ML IV ONE (04:00)
[2020-03-24 07:07] VITALS: BP 119/72
[2020-03-24] MEDS: FUROSEMIDE 20 MG/2 ML IV SCH (08:49)
[2020-03-24] MEDS: DOXYCYCLINE 100MG TABLET PO SCH ×2 (08:53→19:57)
[2020-03-24] MEDS ORDERED: PHARMACOKINETIC CONSULTATION MC ONE (09:30)
[2020-03-24] MEDS ORDERED: PHARMACOKINETIC MONITORING MC PRN (09:30)
[2020-03-24 12:39] VITALS: BP 117/80
[2020-03-24] MEDS ORDERED: ALBUTEROL SULFATE 200 PUFFS/8.5 GR INH INH PRN (17:30)
[2020-03-24 18:57] VITALS: BP 107/75
[2020-03-24] MEDS: ENOXAPARIN 30 MG/0.3 ML SQ SCH (19:57)
[2020-03-24] MEDS: VANCOMYCIN 2,200 MG in SODIUM CHLORIDE 0.9% 500 ML IV SCH (23:28)
[2020-03-25 01:09] VITALS: BP 127/85
[2020-03-25 06:08] LABS: BASOPHILS # (AUTO) 0.09 x10^3/uL (0-0.1); BASOPHILS % (AUTO) 1 % (0-1); EOSINOPHILS # (AUTO) 0.27 x10^3/uL (0-0.4); EOSINOPHILS % (AUTO) 2 % (1-7); LYMPHOCYTES # (AUTO) 2.53 x10^3/uL (1-3.4); LYMPHOCYTES % (AUTO) 23 % (22-44); MD NO; MEAN CORPUSCULAR HEMOGLOBIN 31.6 pg (27.0-34.8); MONOCYTES # (AUTO) 0.66 x10^3/uL (0.2-0.8); MONOCYTES % (AUTO) 6 % (2-9); NEUTROPHILS # (AUTO) 7.57 x10^3/uL (1.8-6.8); NEUTROPHILS % (AUTO) 68 % (42-75); PLATELET COUNT 319 x10^3/uL (130-400); RED BLOOD COUNT 4.13 x10^6/uL (3.82-5.3); RED CELL DISTRIBUTION WIDTH 15.5 % (9.6-15.2)
[2020-03-25 06:33] LABS: ALBUMIN 3.1 g/dL (3.4-5.0); ANION GAP 6 mmol/L (5-15); CALCIUM 9.3 mg/dL (8.5-10.1); CHLORIDE 104 mmol/L (98-107)
[2020-03-25 06:41] LABS: ALANINE AMINOTRANSFERASE 28 U/L (12-78); ALKALINE PHOSPHATASE 95 U/L (45-117); BILIRUBIN,TOTAL 0.4 mg/dL (0.2-1.0); CHOL/HDL RATIO 3.3; CHOLESTEROL, TOTAL 159 mg/dL (140-239); CREATININE 0.72 mg/dL (0.55-1.02); HDL CHOL % 30 % (28-40); HDL CHOLESTEROL (DIRECT) 48 mg/dL (40-60); LDL CHOLESTEROL,CALCULATED 70 mg/dL (54-169); LDL/HDL RATIO 1.5 (0.5-3.0); TOTAL PROTEIN 7.4 g/dL (6.4-8.2); TRIGLYCERIDES 206 mg/dL (50-200); VLDL CHOLESTEROL 41 mg/dL (0-25)
[2020-03-25 07:02] VITALS: BP 116/75
[2020-03-25] MEDS: DOXYCYCLINE 100MG TABLET PO SCH ×2 (08:24→20:11)
[2020-03-25] MEDS: FUROSEMIDE 20 MG/2 ML IV SCH (08:25)
[2020-03-25] MEDS: ENOXAPARIN 30 MG/0.3 ML SQ SCH ×2 (08:25→20:11)
[2020-03-25] MEDS ORDERED: ALBUTEROL SULFATE 2.5 MG/3 ML NPPB PRN (11:30)
[2020-03-25 13:05] VITALS: BP 107/62
[2020-03-25] MEDS: VANCOMYCIN 2,200 MG in SODIUM CHLORIDE 0.9% 500 ML IV SCH (16:21)
[2020-03-25 19:38] VITALS: BP 126/62
[2020-03-25] MEDS: FUROSEMIDE 40 MG TABLET PO SCH (20:12)
[2020-03-26 01:24] VITALS: BP 128/85
[2020-03-26 08:07] VITALS: BP 112/72
[2020-03-26] MEDS: DOXYCYCLINE 100MG TABLET PO SCH (08:17)
[2020-03-26] MEDS: FUROSEMIDE 40 MG TABLET PO SCH (08:17)
[2020-03-26] MEDS: ENOXAPARIN 30 MG/0.3 ML SQ SCH (08:18)
[2020-03-26 09:24] LABS: BASOPHILS # (AUTO) 0.06 x10^3/uL (0-0.1); BASOPHILS % (AUTO) 1 % (0-1); EOSINOPHILS # (AUTO) 0.29 x10^3/uL (0-0.4); EOSINOPHILS % (AUTO) 2 % (1-7); LYMPHOCYTES # (AUTO) 2.81 x10^3/uL (1-3.4); LYMPHOCYTES % (AUTO) 23 % (22-44); MD NO; MEAN CORPUSCULAR HEMOGLOBIN 30.9 pg (27.0-34.8); MEAN CORPUSCULAR HGB CONC 31.8 g/dL (32.4-35.8); MEAN PLATELET VOLUME 8.8 fL (7.4-10.4); MONOCYTES # (AUTO) 0.64 x10^3/uL (0.2-0.8); MONOCYTES % (AUTO) 5 % (2-9); NEUTROPHILS # (AUTO) 8.37 x10^3/uL (1.8-6.8); NEUTROPHILS % (AUTO) 69 % (42-75); PLATELET COUNT 323 x10^3/uL (130-400); RED BLOOD COUNT 4.21 x10^6/uL (3.82-5.3); RED CELL DISTRIBUTION WIDTH 15.4 % (9.6-15.2)
[2020-03-26] MEDS: VANCOMYCIN 2,200 MG in SODIUM CHLORIDE 0.9% 500 ML IV SCH ×2 (11:09→12:02)
[2020-03-26] MEDS ORDERED: DOXY100T PO (15:04)
[2020-03-26 15:31] VITALS: BP 117/77
[2020-03-26] MEDS ORDERED: DOXYCYCLINE 100MG TABLET PO SCH (21:00)
== END 2020-03-26 16:58 | disposition home or self-care (01) | DRG 291 ==
LOC: ED 03-24 02:10 → EDIP 03-24 02:43 → 3N 03-24 02:55
PROVIDERS: ADMIT Internal Medicine; ATTEND Family Medicine
DX: I50.33 Acute on chronic diastolic (congestive) heart failure (principal); J18.9 Pneumonia, unspecified organism; L03.116 Cellulitis of left lower limb; Z68.41 Body mass index [BMI] 40.0-44.9, adult; J96.10 Chronic respiratory failure, unspecified whether with hypoxia or hypercapnia; B95.62 Methicillin resistant Staphylococcus aureus infection as the cause of diseases classified elsewhere; E66.9 Obesity, unspecified; J43.9 Emphysema, unspecified; Z86.14 Personal history of Methicillin resistant Staphylococcus aureus infection; Z87.891 Personal history of nicotine dependence; Z88.0 Allergy status to penicillin; Z88.5 Allergy status to narcotic agent; Z91.010 Allergy to peanuts
CPT/HCPCS: 36415; 71045; 80053; 80061; 83036; 83605; 83735; 83880; 84439; 84443; 84484; 85025; 87040; 87070; 87186; 87205; 93005; 93970; G0378; J1650; J1940; J3370; J7060; J7040

== ENCOUNTER 2020-03-28 20:52 | Emergency (ER) | payer MEDICARE ==
[~2020-03-28] VITALS: Ht 157.5 cm; Wt 109.9 kg
[~2020-03-28 20:52] MED LIST changes: +DOXY100T PO
[2020-03-28 20:55] VITALS: BP 106/61
--- NOTE | 2020-03-28 23:47 | NUR ---
DRESSING CHANGED PER PT COMPLAINT, PT EDUCATED TO FOLLOW UP HER D/C PAPERS INDICATED
--- NOTE | 2020-03-29 00:17 | NUR ---
Patient/Caregiver given discharge instructions and they have confirmed that they understand the instructions. Patient ambulatory with steady gait.
== END 2020-03-29 00:18 | disposition home or self-care (01) ==
LOC: ED 21:22
DX: R21 Rash and other nonspecific skin eruption (principal); J43.9 Emphysema, unspecified; I50.9 Heart failure, unspecified; E66.01 Morbid (severe) obesity due to excess calories; Z68.41 Body mass index [BMI] 40.0-44.9, adult
CPT/HCPCS: 99283

== ENCOUNTER 2020-03-30 18:32 | Emergency (ER) | payer MEDICARE ==
[~2020-03-30] VITALS: Ht 154.9 cm; Wt 110.0 kg
[2020-03-30 18:40] VITALS: BP 112/71
[2020-03-30 19:27] LABS: MEAN CORPUSCULAR HEMOGLOBIN 31.3 pg (27.0-34.8); MEAN CORPUSCULAR HGB CONC 32.6 g/dL (32.4-35.8); MEAN PLATELET VOLUME 8.6 fL (7.4-10.4); PLATELET COUNT 309 x10^3/uL (130-400); RED CELL DISTRIBUTION WIDTH 15.5 % (9.6-15.2)
[2020-03-30 19:37] LABS: ALBUMIN 3.2 g/dL (3.4-5.0); ANION GAP 6 mmol/L (5-15); CALCIUM 9.5 mg/dL (8.5-10.1); CHLORIDE 105 mmol/L (98-107); CREATININE 0.92 mg/dL (0.55-1.02)
[2020-03-30 19:41] LABS: TROPONIN I < 0.015 ng/mL (0.000-0.045)
[2020-03-30 19:53] LABS: MD YES
[2020-03-30 19:55] LABS: <PLATELET ESTIMATE> ADEQUATE; <PLT MORPHOLOGY> NORMAL PLT MORPH; <RBC MORPHOLOGY> NORMAL; BASOS% (MANUAL) 2 % (0-1); EOS#(MANUAL) 0.75 x10^3/uL (0.0-0.4); EOS% (MANUAL) 5 % (1-7); LYMPHS% (MANUAL) 16 % (22-44); MONOS% (MANUAL) 6 % (2-9); SEG#(MANUAL) 10.65 x10^3/uL (1.8-6.8); SEGS% (MANUAL) 71 % (42-75)
--- NOTE | 2020-03-30 20:38 | NUR ---
PT SITTING UPRIGHT. 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 DENIES CP. "THEY SAID IF I FEEL ANYTHING, I SHOULD COME IN". DC'D FROM [facility] 2 DAYS AGO - MRSA LT LE; AREA WRAPPED W/ MICHAEL WRAP. PT ABLE TO SPEAK IN COMPLETE SENTENCES, QUICKLY.
--- NOTE | 2020-03-30 20:53 | NUR ---
PT STATES SHE LEFT MESSAGE FOR PCP THAT SHE NEEDS MORE DOXYCLINE AND POTASSIUM.
--- NOTE | 2020-03-30 22:00 | NUR ---
VO DR TORRES: REWRAP LT LOWER LEG. PT REQUESTING NEW DRESSING. INFORMED PT OF PENDING DISCHARGE; PT EXPRESSED SURPRISE THAT SHE WASN'T GOING TO BE ADMITTED OR GET MORE MEDICATION DURING ED STAY. INFORMED PT THAT I WASN'T SURE, AT THIS TIME, WHAT PRESCRIPTION, IF ANY, THE PROVIDER WILL WRITE FOR THE PT.
--- NOTE | 2020-03-30 22:05 | NUR ---
PT ENDORSED TO ANGELIQUE PETERSON.
== END 2020-03-30 22:59 ==
LOC: ED 21:31
DX: R07.89 Other chest pain (principal); L03.115 Cellulitis of right lower limb; L03.116 Cellulitis of left lower limb; I50.9 Heart failure, unspecified; R00.0 Tachycardia, unspecified
CPT/HCPCS: 36415; 71045; 80048; 82040; 83880; 84484; 85025; 93005; 99285

== ENCOUNTER 2020-04-09 18:19 | Emergency (ER) | payer MEDICARE ==
[~2020-04-09] VITALS: Ht 157.5 cm; Wt 77.0 kg
[2020-04-09 18:22] VITALS: BP 108/79
--- NOTE | 2020-04-09 19:03 | NUR ---
UPON ENTRY TO ROOM, PT REQUESTS REMOTE FOR TELEVISION. PT REPORTS COMING TO ED FOR BANDAID "I DON'T GOT NONE". PT ALSO CONCERNED THAT HEART BEAT PALPATED DIFFERENT RATES ON RT WRIST VERSUS LT. UPON PALPATING PULSES, PT RATE FOUND TO BE EQUAL. PT ASKED FOR "POTTY CHAIR" BECAUSE "I DON'T WALK GOOD". COMMODE BROUGHT IN FOR IT, WHO REQUESTS PRIVACY WHILE USING COMMODE AND REFUSES RN STANDBY ASSIST. NAD NOTED. CURTAIN CLOSED FOR PT PRIVACY. CALL LIGHT REMAINS ON BED IN REACH.
[2020-04-09 19:15] LABS: BASOPHILS % (AUTO) 1 % (0-1); EOSINOPHILS % (AUTO) 1 % (1-7); LYMPHOCYTES % (AUTO) 17 % (22-44); MEAN CORPUSCULAR HEMOGLOBIN 31.2 pg (27.0-34.8); MEAN CORPUSCULAR HGB CONC 32.6 g/dL (32.4-35.8); MEAN PLATELET VOLUME 8.9 fL (7.4-10.4); MONOCYTES % (AUTO) 6 % (2-9); NEUTROPHILS % (AUTO) 75 % (42-75); PLATELET COUNT 342 x10^3/uL (130-400); RED BLOOD COUNT 4.65 x10^6/uL (3.82-5.3); RED CELL DISTRIBUTION WIDTH 15.5 % (9.6-15.2)
[2020-04-09 19:22] LABS: MD NO
[2020-04-09 19:26] LABS: ALBUMIN 3.6 g/dL (3.4-5.0); ANION GAP 5 mmol/L (5-15); CALCIUM 11.4 mg/dL (8.5-10.1); CHLORIDE 105 mmol/L (98-107); CREATININE 1.18 mg/dL (0.55-1.02)
[2020-04-09 19:30] LABS: TROPONIN I < 0.015 ng/mL (0.000-0.045)
--- NOTE | 2020-04-09 20:05 | NUR ---
PT UP FOR DC. AWARE OF PLAN FOR DC. CURRENTLY USING COMMODE. PO FLUIDS PROVIDED FOR PT. PT TO USE CALL LIGHT WHEN COMPLETED USING COMMODE FOR DC INSTRUCTIONS.
== END 2020-04-09 20:20 | disposition home or self-care (01) ==
LOC: ED 19:10
DX: R00.2 Palpitations (principal); R00.0 Tachycardia, unspecified; R60.0 Localized edema; I50.9 Heart failure, unspecified; F17.210 Nicotine dependence, cigarettes, uncomplicated; J43.9 Emphysema, unspecified; E66.01 Morbid (severe) obesity due to excess calories; Z68.31 Body mass index [BMI] 31.0-31.9, adult
CPT/HCPCS: 36415; 80048; 82040; 84484; 85025; 93005; 99284; 99406

== ENCOUNTER 2020-04-11 11:30 | Emergency (ER) | payer MEDICARE ==
[~2020-04-11] VITALS: Ht 157.5 cm; Wt 80.0 kg
[2020-04-11] MEDS ORDERED: ALUMINUM/MAG/SIMETHICONE 30 ML UDC PO ONE ×2 (12:00→14:00)
[2020-04-11] MEDS ORDERED: ALUMINUM/MAG/SIMETHICONE 30 ML UDC ONE ×2 (12:07→13:40)
--- NOTE | 2020-04-11 12:17 | NUR ---
PT TO ROOM 1 W/ C/O ABD PAIN/BURNING AFTER PT STARTED NEW MEDICATION YESTERDAY. PT STATES SHE HAS NOT HAD THIS ISSUE BEFORE. MONITORS APPLIED. PT RESTING ON GURNEY. KNIGHT.
[2020-04-11 12:26] LABS: BASOPHILS % (AUTO) 2 % (0-1); EOSINOPHILS % (AUTO) 2 % (1-7); LYMPHOCYTES % (AUTO) 21 % (22-44); MEAN CORPUSCULAR HEMOGLOBIN 31.2 pg (27.0-34.8); MEAN CORPUSCULAR HGB CONC 32.6 g/dL (32.4-35.8); MEAN PLATELET VOLUME 9.1 fL (7.4-10.4); MONOCYTES % (AUTO) 7 % (2-9); NEUTROPHILS % (AUTO) 69 % (42-75); PLATELET COUNT 333 x10^3/uL (130-400); RED BLOOD COUNT 4.44 x10^6/uL (3.82-5.3); RED CELL DISTRIBUTION WIDTH 15.3 % (9.6-15.2)
[2020-04-11 12:29] LABS: MD NO
[2020-04-11 12:36] LABS: ALBUMIN 3.3 g/dL (3.4-5.0); ANION GAP 7 mmol/L (5-15); CALCIUM 10.4 mg/dL (8.5-10.1); CHLORIDE 107 mmol/L (98-107)
[2020-04-11 12:41] LABS: ALANINE AMINOTRANSFERASE 27 U/L (12-78); ALKALINE PHOSPHATASE 90 U/L (45-117); BILIRUBIN,TOTAL 0.5 mg/dL (0.2-1.0); CREATININE 1.29 mg/dL (0.55-1.02); TOTAL PROTEIN 7.3 g/dL (6.4-8.2)
--- NOTE | 2020-04-11 13:14 | NUR ---
PT STATES HER ABD PAIN IS MUCH IMPROVED BUT REQUESTS MORE MAALOX FOR REMAIN HEARTBURN. EDPA NOTIFIED.
[2020-04-11 13:25] LABS: MICROSCOPIC INDICATED
[2020-04-11 13:43] VITALS: BP 132/69
--- NOTE | 2020-04-11 13:43 | NUR ---
PT RESTING ON GURNEY. NADN. SUTTON.
[2020-04-11] MEDS ORDERED: SUCRALFATE 1 GM TABLET PO ONE (16:00)
== END 2020-04-11 14:57 | disposition home or self-care (01) ==
LOC: ED 11:57
DX: K29.00 Acute gastritis without bleeding (principal); J43.9 Emphysema, unspecified; I50.9 Heart failure, unspecified; E66.01 Morbid (severe) obesity due to excess calories; R00.0 Tachycardia, unspecified; Z68.32 Body mass index [BMI] 32.0-32.9, adult
CPT/HCPCS: 36415; 74022; 80053; 81001; 83690; 85025; 87086; 93005; 99285

== ENCOUNTER 2020-07-18 10:16 | Emergency (ER) | payer MEDICARE ==
[~2020-07-18] VITALS: Ht 157.5 cm; Wt 106.0 kg
--- NOTE | 2020-07-18 10:33 | NUR ---
DR OSEGUERA AT FOR EXAM. PT STATES "THIS IS WHAT HAPPENS EVERY TIME I COME HERE; BETWEEN HERE AND [place]" STATES SX STARTED LAST OCTOBER. "IT'S BEEN A LITTLE OVER A YEAR" THAT SHE HAS TO SLEEP SITTING UP. "IT'S THE FIRST TIME IT'S HAPPENED SINCE I'VE BEEN SLEEPING". REPORTS INTERMITTENT APNIC PERIODS WHILE AWAKE. PT O2 SAT INCREASED TO 94% RA WHILE SPEAKING W/ ERP.
--- NOTE | 2020-07-18 10:40 | NUR ---
PT INFORMED ERP THAT SHE TAKES FUROSEMIDE, BUT HAS BEEN OUT OF MED. PT INITIALLY TOLD THIS RN SHE WAS ALLERGIC TO FUROSEMIDE. CHART REVIEW PER SCRIBE: PT HAS BEEN ON FUROSEMIDE; WILL BE REMOVED FROM ALLERGY LIST.
--- NOTE | 2020-07-18 10:45 | NUR ---
O2 INCREASED TO 1% RA, WILL TITRATE PRN.
--- NOTE | 2020-07-18 10:54 | NUR ---
PT PUSHED CALL LIGHT; WANTS TO INFORM ERP RE: TEXT CONVERSATION ON HER PHONE. OUTGOING TEXTS FROM [place] TO HER PCP W/OUT RETURN TEXTS; PT STATE THE DOCTOR "WON'T CALL ME BACK" BUT "HIS NURSE DID". PT HAD STATED EARLIER THAT THE PCP OFFICE DOESN'T RETURN HER CALLS. PT STATES SHE WANTS NEW PRESCRIPTIONS. WHEN ASKED WHICH MEDICATIONS, PT REPLIED FAMOTIDINE, DOXYCYCLINE "FOR THE MRSA" (POINTED TO BOTH LOWER LEGS: SKIN INTACT, SLIGHT PINK-RED COLOR NOTED), ACETAMINOPHEN, AND "SOMETHING WITH AN F". INFORMED PT THAT ACETAMINOPHEN IS OTC. INFORMED PT OF PENDING BLOOD DRAW.
[2020-07-18 11:24] LABS: EOSINOPHILS % (AUTO) 3 % (1-7); MEAN CORPUSCULAR HGB CONC 33.5 g/dL (32.4-35.8); MEAN PLATELET VOLUME 8.7 fL (7.4-10.4); PLATELET COUNT 344 x10^3/uL (130-400); RED BLOOD COUNT 4.32 x10^6/uL (3.82-5.3); RED CELL DISTRIBUTION WIDTH 14.8 % (9.6-15.2)
--- NOTE | 2020-07-18 11:24 | NUR ---
THROUGHPUT RN: PT CALLED FRONT NURSING DESK FROM HER ER ROOM ON HER CELL PHONE, YELLING AT STAFF STATING THAT SOMEONE CALLED HER DAUGHTER AND NOW HER DAUGHTER IS UPSET AND SHE WANTS TO KNOW WHO CALLED HER DAUGHTER, IT'S SOME ONE FROM THE HOSPITAL NOT THE ER, BUT MY DAUGHTER DIDN'T ASK A NAME AND CAN YOU HAVE MY DOCTOR COME IN HERE, I NEED TO GIVE HIM MORE INFORMATION." PT'S PRIMARY RN ELISEO AWARE OF PTS REQUESTS/CONCERNS, ELISEO TO SEE PT AT BEDSIDE. DR. OSEGUERA NOTIFIED PT WOULD LIKE TO SEE HIM.
[2020-07-18 11:30] VITALS: BP 112/68
[2020-07-18 11:34] LABS: ANION GAP 7 mmol/L (5-15); CALCIUM 9.4 mg/dL (8.5-10.1); CHLORIDE 106 mmol/L (98-107); CREATININE 0.79 mg/dL (0.55-1.02)
--- NOTE | 2020-07-18 11:42 | NUR ---
PT REQUESTING ADDITIONAL PILLOWS; CURRENTLY HAS ONE; INFORMED HER NO SPARES CURRENTLY AVAILABLE. INFORMED PT THAT THIS RN DID NOT CALL HER DAUGHTER. PT REPLIED, "OH I DIDN'T THINK YOU DID. IT WAS PROBABLY THE HOSPITAL OFFICE"
--- NOTE | 2020-07-18 11:44 | NUR ---
PT PUSHED CALL LIGHT, AGAIN. REQUESTING BP CUFF ADJUSTMENT - DONE - AND SOMETHING TO DRINK. INFORMED HER THAT THERE ARE ADDITIONAL PT'S THAT NEED MY ATTENTION, BUT I WOULD PROVIDE A BEVERAGE SOON.
--- NOTE | 2020-07-18 11:46 | NUR ---
PT PUSHED CALL LIGHT, AGAIN. REQUESTING BED RAIL BE LOWERED "SO THAT I CAN SEE THE TV". DONE.
[2020-07-18 11:52] LABS: BASOPHILS % (AUTO) 0 % (0-1); LYMPHOCYTES % (AUTO) 25 % (22-44); MONOCYTES % (AUTO) 6 % (2-9); NEUTROPHILS % (AUTO) 66 % (42-75)
[2020-07-18 11:56] LABS: EOSINOPHILS # (AUTO) 0.35 x10^3/uL (0-0.4); MD SCAN
[2020-07-18 11:58] LABS: NEUTROPHILS # (AUTO) 7.67 x10^3/uL (1.8-6.8)
--- NOTE | 2020-07-18 12:07 | NUR ---
WATER BOTTLE PROVIDED TO PT. PT CURRENTLY SITTING ON CHAIR NEXT TO BED; PT HAD MOVED CHAIR AROUND [facility] FROM THE OTHER SIDE OF BED.
--- NOTE | 2020-07-18 12:08 | NUR ---
PT STATES "THE OFFICE CALLED MY DAUGHTER ABOUT MY INSURANCE". DETERMINED THAT REGISTRATION POSSIBLY CALLED DAUGHTER. PT HAS PHOTO OF INSURANCE POLICY ON HER PHONE; WILL NOTIFY REGISTRATION.
--- NOTE | 2020-07-18 12:12 | NUR ---
PT PUSHED CALL LIGHT, AGAIN. ASKED IF I COULD PLUG HER PHONE IN. INFORMED HER THAT THERE WAS AN OUTLET RIGHT NEXT TO HER ON THE WALL. ASKED PT TO REFRAIN FROM PUSHING LIGHT, UNLESS AN EMERGENCY, THERE ARE OTHER PT'S THAT NEED MY ATTENTION. PT VERBALIZED UNDERSTANDING.
--- NOTE | 2020-07-18 12:38 | NUR ---
DC INSTRUCTIONS DISCUSSED W/ PT. PT NOW STATING SHE CAN'T TAKE FUROSEMIDE. INFORMED PT THAT SHE DOES NOT NEED TO FILL THAT PARTICULAR RX. PT REQUESTING TAXI VOUCHER; STATES HER DAUGHTER, WHOM SHE LIVES WITH, DOESN'T DRIVE.
--- NOTE | 2020-07-18 12:45 | NUR ---
PT REQUESTING RX FOR DOXYCYLINE "BECAUSE I HAVE MRSA". INFORMED PT REQUEST WAS DENIED PER PROVIDE DUE TO NO ACTIVE INFECTION. PT TAKEN TO DC AREA PER WC; TAXI VOUCHER PROVIDED.
== END 2020-07-18 12:53 | disposition home or self-care (01) ==
LOC: ED 12:34
DX: I11.0 Hypertensive heart disease with heart failure (principal); I50.9 Heart failure, unspecified; Z76.0 Encounter for issue of repeat prescription; Z91.19 Patient's noncompliance with other medical treatment and regimen; G89.29 Other chronic pain; R60.0 Localized edema; E66.01 Morbid (severe) obesity due to excess calories; Z68.41 Body mass index [BMI] 40.0-44.9, adult
CPT/HCPCS: 36415; 80048; 85025; 99283

== ENCOUNTER 2020-07-20 00:49 | Emergency (ER) | payer MEDICARE ==
[~2020-07-20] VITALS: Ht 157.5 cm; Wt 105.0 kg
--- NOTE | 2020-07-20 01:19 | NUR ---
BREAK RN: PT. ASSISTED FROM [facility] TO [facility]. MONITORS IN PLACE. LAB AT FOR BLOOD DRAW. CALL LIGHT IN REACH. ALL SAFETY MEASURES OBSERVED.
--- NOTE | 2020-07-20 01:25 | NUR ---
ICE CHIPS PROVIDED TO PT.; OK PER .
[2020-07-20 01:40] LABS: MEAN CORPUSCULAR HEMOGLOBIN 30.8 pg (27.0-34.8); MEAN PLATELET VOLUME 8.7 fL (7.4-10.4); PLATELET COUNT 329 x10^3/uL (130-400); RED BLOOD COUNT 4.43 x10^6/uL (3.82-5.3); RED CELL DISTRIBUTION WIDTH 15.3 % (9.6-15.2)
[2020-07-20 01:46] LABS: ALBUMIN 3.5 g/dL (3.4-5.0); ANION GAP 6 mmol/L (5-15); CALCIUM 9.6 mg/dL (8.5-10.1); CHLORIDE 107 mmol/L (98-107); CREATININE 0.77 mg/dL (0.55-1.02)
[2020-07-20 01:50] LABS: TROPONIN I < 0.015 ng/mL (0.000-0.045)
--- NOTE | 2020-07-20 01:53 | NUR ---
PATIENT REQUESTED ALOVERA LOTION, NOTIFIED PATIENT THAT WE DO NOT HAVE ALOE VERA LOTION ON HAND. PATIENT UPDATED ON PLAN OF CARE. NO NOTED ADDITIONAL NEEDS AT THIS TIME.
[2020-07-20 01:54] LABS: MD YES
[2020-07-20 02:17] LABS: BASOS#(MANUAL) 0.22 x10^3/uL (0-0.1); BASOS% (MANUAL) 2 % (0-1); EOS#(MANUAL) 0.11 x10^3/uL (0.0-0.4); EOS% (MANUAL) 1 % (1-7); LYMPH#(MANUAL) 2.05 x10^3/uL (1-3.4); LYMPHS% (MANUAL) 19 % (22-44); MONOS#(MANUAL) 0.65 x10^3/uL (0.3-2.7); MONOS% (MANUAL) 6 % (2-9); SEG#(MANUAL) 7.78 x10^3/uL (1.8-6.8); SEGS% (MANUAL) 72 % (42-75)
[2020-07-20 02:19] LABS: <PLATELET ESTIMATE> ADEQUATE; <PLT MORPHOLOGY> NORMAL PLT MORPH; <RBC MORPHOLOGY> NORMAL
[2020-07-20 02:55] VITALS: BP 123/78
--- NOTE | 2020-07-20 02:56 | NUR ---
PATIENT CLEARED FOR DISCHARGE. PATIENT DID NOT WANT TO HAVE DAUGHTER PICK HER UP WITH OXYGEN FOR RIDE. PATIENT REQUESTED THAT SHE GO HOME BY TAXI WITHOUT OXYGEN. PATIENT STATED THAT SHE IS DISCHARGED ALL OF THE TIME WITHOUT OXYGEN AND NEVER HAS HAD A PROBLEM. PATIENT TAKEN TO DISCHARGE DESK VIA WHEELCHAIR WITH BELONGINGS WITHOUT COMPLICATIONS PER REQUEST. PATIENT REQUESTED TO BE TAKEN OUTSIDE TO AWAIT TAXI RIDE. PATIENT PLACED PER REQUEST.
== END 2020-07-20 02:59 | disposition home or self-care (01) ==
LOC: ED 01:16
DX: I11.0 Hypertensive heart disease with heart failure (principal); I50.9 Heart failure, unspecified; R60.0 Localized edema; R06.00 Dyspnea, unspecified; R94.31 Abnormal electrocardiogram [ECG] [EKG]; J43.9 Emphysema, unspecified; Z87.891 Personal history of nicotine dependence; E66.01 Morbid (severe) obesity due to excess calories; Z68.41 Body mass index [BMI] 40.0-44.9, adult; Z88.0 Allergy status to penicillin; Z88.8 Allergy status to other drugs, medicaments and biological substances; Z88.5 Allergy status to narcotic agent
CPT/HCPCS: 36415; 71045; 80048; 82040; 83880; 84484; 85025; 93005; 99285

== ENCOUNTER 2020-07-21 18:43 | Emergency (ER) | payer MEDICARE ==
[~2020-07-21] VITALS: Ht 162.6 cm; Wt 73.0 kg
--- NOTE | 2020-07-21 18:55 | NUR ---
Pt coming from home where her "daughter is her primary care coordinator." Pt states she doesn't smoke but pack of cigarettes fell out of bra. Pt angrily undressed self, slamming clothes on the gurney. Pt states "I'm going to without my Guifenisen (cough syrup.) Pt connected to all monitoring. MD Vizcaino at bedside for eval. Report to ANGELIQUE Winn.
[2020-07-21] MEDS ORDERED: GUAIFENESIN 200 MG TABLET PO ONE ×2 (19:00→21:00)
[2020-07-21] MEDS ORDERED: FAMOTIDINE 20 MG TABLET PO ONE ×2 (19:00→21:00)
--- NOTE | 2020-07-21 19:00 | NUR ---
BEDSIDE REPORT FROM ALFREDO MERINO
[2020-07-21] MEDS ORDERED: FAMOTIDINE 20 MG TABLET ONE ×2 (19:10→21:22)
[2020-07-21] MEDS ORDERED: FUROSEMIDE 20 MG TABLET ONE ×2 (19:10→21:22)
[2020-07-21] MEDS ORDERED: GUAIFENESIN 200 MG TABLET ONE ×2 (19:10→21:22)
--- NOTE | 2020-07-21 19:10 | NUR ---
PT MEDICATED PER EMAR, CONTINUALLY ASKING "I'M NOT GONNA STAY AM I? I DON'T WANT TO STAY, I SHOULD BE ABLE TO GO HOME." PT PROVIDED WARM BLANKET PER REQUEST. PT DENIES ANY ADDITIONAL NEEDS AT THIS TIME. CALL LIGHT WITHIN REACH.
--- NOTE | 2020-07-21 19:39 | NUR ---
PT UP TO BEDSIDE COMMODE, NAD, VSS. PT DENIES ANY ADDITIONAL NEEDS AT THIS TIME
--- NOTE | 2020-07-21 20:16 | NUR ---
PT CONTINUALLY PRESSING CALL LIGHT, "WHEN WILL THE DOCTOR COME BACK IN? AM I GOING TO GO HOME? I REALLY DON'T WANT TO STAY. I NEED SOME CRACKERS AND COFFEE, RIGHT NOW. YOU NEED TO GO GET THAT FOR ME." UPON ENTRY INTO ROOM PT HAS NASAL CANNULA ON FOREHEAD AND NOT APPROPRIATELY PLACED IN NOSE. PT EDUCATED ON PROPER POSITION AND USE OF CANNULA, REPLACED IN PROPER POSITION, PT VERBALIZED UNDERSTANDING OF USE. AWAITING ERP FOR RE-EVAL.
--- NOTE | 2020-07-21 20:30 | NUR ---
UPON ENTRY INTO ROOM, PT UP WALKING AROUND IN ROOM WITHOUT OXYGEN. PT CONTINUALLY YELLING AT THIS RN "I NEED THAT DOCTOR TO GET IN HERE NOW, I NEED TO GO HOME". PT REEDUCATED ON PROPER O2 USE. PT CONTINUALLY SHOUTING IN ROOM, "HURRY THE HELL UP, THIS IS JUST RIDICULOUS" WHILE SLAMMING CALL LIGHT AGAINST BED.
--- NOTE | 2020-07-21 20:43 | NUR ---
ERP AT BEDSIDE
[2020-07-21] MEDS ORDERED: FUROSEMIDE 20 MG TABLET PO ONE (21:00)
--- NOTE | 2020-07-21 21:03 | NUR ---
PT SITTING UPRIGHT ON ANTONIA ROMERO VSS. PT DENIES ANY NEEDS AT THIS TIME. AWAITING D/C.
[2020-07-21 21:31] VITALS: BP 145/61
--- NOTE | 2020-07-21 21:40 | NUR ---
Patient given discharge instructions and they have confirmed that they understand the instructions. Patient ambulatory with steady gait. Pt provided taxi voucher per request
[2020-07-22] MEDS ORDERED: FUROSEMIDE 20 MG TABLET PO SCH (09:00)
== END 2020-07-21 21:42 | disposition home or self-care (01) ==
LOC: ED 19:25
DX: R06.00 Dyspnea, unspecified (principal); M79.89 Other specified soft tissue disorders; J45.909 Unspecified asthma, uncomplicated; I50.9 Heart failure, unspecified; Z87.891 Personal history of nicotine dependence
CPT/HCPCS: 71045; 99284; 99285

== ENCOUNTER 2020-07-23 11:30 | Emergency (ER) | payer MEDICARE ==
[~2020-07-23] VITALS: Ht 160 cm; Wt 78.0 kg
[2020-07-23] MEDS ORDERED: CEFAZOLIN 1,000 MG IM ONE (12:12)
[2020-07-23] MEDS ORDERED: DIPH,PERTUSS(ACELL),TET VAC/PF 0.5 ML IM-VACC ONE ×2 (12:30→12:42)
[2020-07-23] MEDS ORDERED: ACETAMINOPHEN 500 MG TABLET ONE (12:42)
[2020-07-23] MEDS ORDERED: CEFAZOLIN 1,000 MG ONE (12:42)
[2020-07-23] MEDS ORDERED: LIDOCAINE-MPF 1%, 5ML ONE (13:19)
[2020-07-23] MEDS ORDERED: NEOSPORIN OINT. PKT 1 PACKET ONE (13:53)
[2020-07-23 14:23] VITALS: BP 109/71
== END 2020-07-23 14:25 | disposition home or self-care (01) ==
LOC: ED 12:53
DX: S61.216A Laceration without foreign body of right little finger without damage to nail, initial encounter (principal); J43.9 Emphysema, unspecified; I11.0 Hypertensive heart disease with heart failure; I50.9 Heart failure, unspecified; E66.01 Morbid (severe) obesity due to excess calories; Z68.30 Body mass index [BMI] 30.0-30.9, adult; Z87.891 Personal history of nicotine dependence; Z89.021 Acquired absence of right finger(s); X58.XXXA Exposure to other specified factors, initial encounter; Y93.89 Activity, other specified; Y92.89 Other specified places as the place of occurrence of the external cause; Y99.8 Other external cause status
CPT/HCPCS: 12001; 73140; 90471; 90715; 96372; 99284; J0690

== ENCOUNTER 2020-07-25 00:23 | Emergency (ER) | payer MEDICARE ==
[~2020-07-25] VITALS: Ht 162.6 cm; Wt 109.0 kg
--- NOTE | 2020-07-25 01:11 | NUR ---
FINGER REDRESSED PER PA VERBAL ORDERS OF CLEANSING SITE, XEROFORM, DRY GAUZE ROLL AND MICHAEL WRAP. THIS WAS PERFORMED. PATIENT FRUSTRATED THAT TV DOES NOT WORK. USED CALL BLACK X3 TIMES IN 2 MIN SPAN TO HAVE SOMEONE COME FIX THIS.
--- NOTE | 2020-07-25 01:17 | NUR ---
PATIENT GIVEN HOME SUPPLIES TO CHANGE DRESSING 1 TIME.
[2020-07-25 01:47] VITALS: BP 107/73
== END 2020-07-25 01:48 | disposition home or self-care (01) ==
LOC: ED 00:53
DX: S61.218D Laceration without foreign body of other finger without damage to nail, subsequent encounter (principal); X58.XXXD Exposure to other specified factors, subsequent encounter; J44.9 Chronic obstructive pulmonary disease, unspecified; I11.0 Hypertensive heart disease with heart failure; I50.9 Heart failure, unspecified; Z88.0 Allergy status to penicillin; Z88.5 Allergy status to narcotic agent; Z88.8 Allergy status to other drugs, medicaments and biological substances; Z88.2 Allergy status to sulfonamides
CPT/HCPCS: 99281; 99282

== ENCOUNTER 2020-07-28 15:28 | Emergency (ER) | payer MEDICARE ==
[~2020-07-28] VITALS: Ht 157.5 cm; Wt 113.0 kg
[2020-07-28 15:35] VITALS: BP 134/105
[2020-07-28] MEDS ORDERED: NEOSPORIN OINT. PKT 1 PACKET ONE (16:00)
--- NOTE | 2020-07-28 17:22 | NUR ---
Patient given discharge instructions and they have confirmed that they understand the instructions. Patient ambulatory with steady gait.
== END 2020-07-28 17:23 | disposition home or self-care (01) ==
LOC: ED 16:56
DX: S61.217D Laceration without foreign body of left little finger without damage to nail, subsequent encounter (principal); J44.9 Chronic obstructive pulmonary disease, unspecified; I10 Essential (primary) hypertension; Z88.0 Allergy status to penicillin; E66.01 Morbid (severe) obesity due to excess calories; Z68.42 Body mass index [BMI] 45.0-49.9, adult; Z88.5 Allergy status to narcotic agent; Z88.8 Allergy status to other drugs, medicaments and biological substances; Z88.2 Allergy status to sulfonamides; X58.XXXD Exposure to other specified factors, subsequent encounter
CPT/HCPCS: 99282

== ENCOUNTER 2020-08-03 12:29 | Inpatient (IN) | payer MEDICARE ==
[~2020-08-03] VITALS: Ht 157.5 cm; Wt 75.0 kg
[~2020-08-03 12:29] MED LIST changes: +ACET-76 PO; +CEPH-376 PO; +NAPR-856 PO
--- NOTE | 2020-08-03 13:00 | NUR ---
LATE ENTRY: PT BIB EMS FOR SOB AT REST ON EXCERTION. PT STATES THIS STARTED THIS MORNING AND "HAS NEVER BEEN LIKE THIS BEFORE" PT IS AUDIBLY WHEEZING ON ASSESSMENT. PT HAS HX OF COPD, ASTHMA, RIGHT PINKY FINGER AMPUTATION. MONITORS CONNECTED. CALL LIGHT W/IN REACH
--- NOTE | 2020-08-03 13:30 | NUR ---
AT BEDSIDE FOR ASSESSMENT
[2020-08-03] MEDS: methylPREDNISolone SOD SUCC 125 MG/2 ML IVPush ONE ×2 (14:00→16:50)
[2020-08-03] MEDS ORDERED: ALBUTEROL/IPRATROPIUM 2.5MG/0.5MG, 3 ML NPPB ONE (14:00)
[2020-08-03] MEDS ORDERED: FUROSEMIDE 40 MG/4 ML IV ONE (14:00)
[2020-08-03] MEDS ORDERED: FUROSEMIDE 20 MG/2 ML ONE (14:07)
[2020-08-03] MEDS ORDERED: methylPREDNISolone SOD SUCC 125 MG/2 ML ONE ×2 (14:07→16:43)
[2020-08-03] MEDS ORDERED: ALBUTEROL/IPRATROPIUM 2.5MG/0.5MG, 3 ML ONE (14:25)
[2020-08-03 15:13] LABS: ALBUMIN 3.5 g/dL (3.4-5.0); CALCIUM 9.6 mg/dL (8.5-10.1)
[2020-08-03 15:19] LABS: ALANINE AMINOTRANSFERASE 33 U/L (12-78); ALKALINE PHOSPHATASE 83 U/L (45-117); BILIRUBIN,TOTAL 0.6 mg/dL (0.2-1.0); CREATININE 0.69 mg/dL (0.55-1.02); TOTAL PROTEIN 7.5 g/dL (6.4-8.2); TROPONIN I < 0.015 ng/mL (0.000-0.045)
[2020-08-03 15:22] LABS: ANION GAP 7 mmol/L (5-15); CHLORIDE 107 mmol/L (98-107)
[2020-08-03 15:31] LABS: RED BLOOD COUNT 4.26 x10^6/uL (3.82-5.3)
[2020-08-03 15:32] LABS: MD YES; MEAN CORPUSCULAR HEMOGLOBIN 30.6 pg (27.0-34.8); MEAN CORPUSCULAR HGB CONC 32.5 g/dL (32.4-35.8); MEAN PLATELET VOLUME 8.8 fL (7.4-10.4); PLATELET COUNT 321 x10^3/uL (130-400); RED CELL DISTRIBUTION WIDTH 15.3 % (9.6-15.2)
[2020-08-03 15:58] LABS: EOS#(MANUAL) 0.38 x10^3/uL (0.0-0.4); EOS% (MANUAL) 3 % (1-7); LYMPH#(MANUAL) 2.13 x10^3/uL (1-3.4); LYMPHS% (MANUAL) 17 % (22-44); MONOS% (MANUAL) 4 % (2-9); SEGS% (MANUAL) 76 % (42-75)
[2020-08-03 15:59] LABS: <PLATELET ESTIMATE> ADEQUATE; <PLT MORPHOLOGY> NORMAL PLT MORPH; <RBC MORPHOLOGY> NORMAL
[2020-08-03] MEDS ORDERED: DOXYCYCLINE 100 MG in DEXTROSE 5% 250 ML IV SCH (16:30)
--- NOTE | 2020-08-03 16:37 | NUR ---
PT RESTLESS IN BED. ASSISTED TO BATHROOM. REFUSING ORDERED MEDICATIONS. AWARE
--- NOTE | 2020-08-03 16:38 | NUR ---
ASSISTED PT TO BEDSIDE COMMODE. WHEEZING W/EXCERTION. MD AT BEDSIDE TO DISCUSS ADMIT. VSS. NAD. CALL LIGHT W/IN REACH
--- NOTE | 2020-08-03 17:54 | NUR ---
ORDERED PT CARDIAC DIET TRAY
--- NOTE | 2020-08-03 18:20 | NUR ---
PT SITTING UP IN BED EATING DINNER. 4X4 GAUZE PLACED ON BACK OF RIGHT LEG PER PT REQUEST. CARDIAC LEADS REPLACED. VSS. CALL LIGHT W/IN REACH. WILL CONTINUE TO MONITOR
[2020-08-03] MEDS ORDERED: NAPROXEN 500 MG TABLET PO PRN (19:00)
[2020-08-03] MEDS: DOXYCYCLINE 100 MG in DEXTROSE 5% 250 ML IV SCH (19:00)
[2020-08-03] MEDS ORDERED: ALBUTEROL SULFATE 2.5 MG/3 ML NPPB PRN (19:00)
--- NOTE | 2020-08-03 20:28 | NUR ---
PT ASSISTED TO COMMODE. PT CONTINUES TO REMOVE OXYGEN. PT EDUCATED ON THAT SHE NEEDS TO CONTINUE TO WEAR HER OXYGEN AT ALL TIMES. PT VERBALIZED UNDERSTANDING. PT UPSET THAT HER DOOR HAS BEEN CLOSED. EXPLAINED TO PT THAT HER YELLING AND PLAYING THE TV TOO LOUDLY IS INAPPROPRIATE FOR OTHER PTS TRYING TO REST - PT VERBALIZED UNDERSTANDING. PT PROVIDED WITH NEMR BLANKETS.
[2020-08-03] MEDS ORDERED: ENOXAPARIN 40 MG/0.4 ML ONE (20:47)
[2020-08-03] MEDS: ENOXAPARIN 40 MG/0.4 ML SQ SCH (20:51)
--- NOTE | 2020-08-03 20:53 | NUR ---
PT SITTING UP ON GURNEY. ORDERED MEDICATION ADMINISTERED. CONTINUED EDUCATION ON KEEPING OXYGEN IN PLACE. CALL LIGHT W/IN REACH.
--- NOTE | 2020-08-03 21:01 | NUR ---
PT PUSHED CALL LIGHT. PT ASSISTED IN FINDING CELL PHONE.
--- NOTE | 2020-08-03 21:22 | NUR ---
CALL LIGHT ANSWERED. PT WANTED CURTAIN OPEN
--- NOTE | 2020-08-03 22:00 | NUR ---
REPORT FROM ANGELIQUE OSCAR. ASSUMED CARE.
--- NOTE | 2020-08-03 22:25 | NUR ---
Pt visible from nurses station, sitting up in bed on phone, breathing equal and non-labored, oxygen on.
--- NOTE | 2020-08-03 22:42 | NUR ---
Provided pt decaf coffee and jaime crackers.
--- NOTE | 2020-08-03 22:54 | NUR ---
RECEIVED REPORT FROM ANGELIQUE OLMSTEAD TO ASSUME CARE OF PT. AT THIS TIME. HOSPITAL BED REQUESTED FOR PT. PT. DENIES NEEDS. RESTING ON GURNEY WITH NO DISTRESS NOTED.
--- NOTE | 2020-08-03 23:26 | NUR ---
PT. PLACED ONTO HOSPITAL BED AND POSITIONED FOR COMFORT. PT. WITH MULTIPLE REQUESTS. LITMITS SET WITH PT. IN REGARDS TO MULTIPLE REQUESTS. HOURLY ROUNDING DISCUSSED; PT. STATES "I CAN'T GO AN HOUR WIHTOUT YOU." PT. PROVIDED WITH ALL PERSONL BELONGINGS WITHIN REACH. SNACKS/COFFEE. MULTIPLE PILLOWS. CALL LIGHT IN REACH. PT. DENIES OTHER NEEDS AT THIS TIME. REITERATED HOURLY ROUNDING WITH PT. PT. AGREEABLE. ALL SAFETY MEASURES OBSERVED.
--- NOTE | 2020-08-04 02:00 | NUR ---
PT. C/O PAIN TO IV SITE. ATTEMPTED TO FLUSH IV AND PT. STARTED SHOUTING THAT IT WAS TOO PAINFUL. NO REDNESS/SWELLING NOTED, IV FLUSHING WELL. PT. INSISTED IV BE REMOVED AND NEW ONE PLACED. IV D/C WITH TIP INTACT. NEW IV PLACED.
--- NOTE | 2020-08-04 02:54 | NUR ---
REPORT TO ANGELIQUE ROGERS TO ASSUME CARE OF PT. AT THIS TIME.
[2020-08-04] MEDS ORDERED: ACETAMINOPHEN 500 MG TABLET ONE (05:04)
[2020-08-04] MEDS: ACETAMINOPHEN 500 MG TABLET PO PRN ×3 (05:07→23:23)
--- NOTE | 2020-08-04 05:08 | NUR ---
PT REQUESTED CRACKERS AND PAIN MED FOR HER FINGER. PT PROVIDED FOOD AND TYLENOL
[2020-08-04 05:30] LABS: BASOPHILS % (AUTO) 1 % (0-1); EOSINOPHILS % (AUTO) 0 % (1-7); LYMPHOCYTES % (AUTO) 8 % (22-44); MD SCAN; MEAN CORPUSCULAR HGB CONC 33.3 g/dL (32.4-35.8); MEAN PLATELET VOLUME 9.2 fL (7.4-10.4); MONOCYTES % (AUTO) 1 % (2-9); NEUTROPHILS % (AUTO) 90 % (42-75); PLATELET COUNT 331 x10^3/uL (130-400); RED BLOOD COUNT 4.33 x10^6/uL (3.82-5.3); RED CELL DISTRIBUTION WIDTH 15.4 % (9.6-15.2)
[2020-08-04 05:43] LABS: ANION GAP 6 mmol/L (5-15); CHLORIDE 105 mmol/L (98-107); CREATININE 0.79 mg/dL (0.55-1.02)
--- NOTE | 2020-08-04 05:45 | NUR ---
PT WAS ASSISTED TO BEDSIDE BATHROOM AND BACK TO BED. PT DENIED ANY CURRENT WANTS OR NEEDS. PT HAS CALL LIGHT WITHIN REACH.
--- NOTE | 2020-08-04 06:59 | NUR ---
REPORT FROM SUE. PATIENT IN BED, RAILS UP
[2020-08-04] MEDS: DOXYCYCLINE 100 MG in DEXTROSE 5% 250 ML IV SCH ×2 (07:00→19:00)
[2020-08-04] MEDS ORDERED: methylPREDNISolone SOD SUCC 125 MG/2 ML ONE (07:01)
[2020-08-04] MEDS: methylPREDNISolone SOD SUCC 125 MG/2 ML IVPush SCH ×3 (07:10→23:25)
--- NOTE | 2020-08-04 08:22 | NUR ---
PATIENT FIGANTWON. SHE SITS UP, SITS BACK, HITS CALL LIGHT FREQUENTLY FOR: CRACKERS, SUGAR, COFFEE, TO TELL ME ABOUT SHE NEEDS TO LEAVE TO PAY RENT, HER DAUGHTER MAY VISIT. PATIENT AOX4. NO REPORTS OF PAIN OR DISTRESS.
--- NOTE | 2020-08-04 08:43 | NUR ---
BROUGHT PATIENT BREAKFAST. ATE ALL
[2020-08-04] MEDS ORDERED: ALBUTEROL SULFATE 2.5 MG/3 ML NPPB SCH (09:00)
--- NOTE | 2020-08-04 09:49 | NUR ---
PATIENT WATCHING TV, NO COMPLAINTS
--- NOTE | 2020-08-04 10:40 | NUR ---
PATIENT REPORT TO SCOTT FOR SECOND TIME, FIRST IN PERSON BEDSIDE AT 10AM, AND AGAIN ON PHONE. PATIENT VSS, NO COMPLAINTS OF PAIN.
[2020-08-04 12:00] VITALS: BP 114/72
[2020-08-04] MEDS ORDERED: VANCOMYCIN PER PHARMACY MC PRN (17:00)
[2020-08-04] MEDS ORDERED: VANCOMYCIN PMX 1GM/200ML 200 ML IV ONE (17:00)
[2020-08-04] MEDS ORDERED: VANCOMYCIN 1,800 MG in SODIUM CHLORIDE 0.9% 250 ML IV ONE (17:30)
[2020-08-04] MEDS ORDERED: PHARMACOKINETIC CONSULTATION MC ONE (17:30)
[2020-08-04] MEDS ORDERED: PHARMACOKINETIC MONITORING MC PRN (17:30)
[2020-08-04 20:13] VITALS: BP 122/78
[2020-08-04] MEDS: ENOXAPARIN 40 MG/0.4 ML SQ SCH (21:24)
[2020-08-04] MEDS: ALBUTEROL HFA 90 MCG/SPRAY INH SCH (21:24)
[2020-08-05 02:55] VITALS: BP 127/78
[2020-08-05] MEDS: ACETAMINOPHEN 500 MG TABLET PO PRN ×2 (03:08→07:45)
[2020-08-05] MEDS: VANCOMYCIN 1,500 MG in SODIUM CHLORIDE 0.9% 250 ML IV SCH ×2 (06:00→17:17)
[2020-08-05 06:17] LABS: BASOPHILS % (AUTO) 0 % (0-1); EOSINOPHILS % (AUTO) 0 % (1-7); LYMPHOCYTES % (AUTO) 8 % (22-44); MEAN CORPUSCULAR HEMOGLOBIN 30.9 pg (27.0-34.8); MEAN PLATELET VOLUME 8.9 fL (7.4-10.4); MONOCYTES % (AUTO) 2 % (2-9); NEUTROPHILS % (AUTO) 90 % (42-75); PLATELET COUNT 362 x10^3/uL (130-400); RED BLOOD COUNT 4.17 x10^6/uL (3.82-5.3); RED CELL DISTRIBUTION WIDTH 15.5 % (9.6-15.2)
[2020-08-05 06:18] LABS: MD NO
[2020-08-05 06:20] LABS: CHLORIDE 104 mmol/L (98-107)
[2020-08-05] MEDS: ALBUTEROL HFA 90 MCG/SPRAY INH SCH ×3 (06:20→21:23)
[2020-08-05 06:30] LABS: ALANINE AMINOTRANSFERASE 28 U/L (12-78); ALBUMIN 3.4 g/dL (3.4-5.0); ALKALINE PHOSPHATASE 75 U/L (45-117); ANION GAP 10 mmol/L (5-15); BILIRUBIN,TOTAL 0.3 mg/dL (0.2-1.0); CALCIUM 9.2 mg/dL (8.5-10.1); CREATININE 0.75 mg/dL (0.55-1.02); TOTAL PROTEIN 7.6 g/dL (6.4-8.2)
[2020-08-05 07:34] VITALS: BP 116/70
[2020-08-05] MEDS: methylPREDNISolone SOD SUCC 125 MG/2 ML IVPush SCH ×2 (07:45→15:30)
[2020-08-05] MEDS: DOXYCYCLINE 100 MG in DEXTROSE 5% 250 ML IV SCH (12:01)
[2020-08-05 12:29] VITALS: BP 125/68
[2020-08-05 20:13] VITALS: BP 136/93
[2020-08-05] MEDS: ENOXAPARIN 40 MG/0.4 ML SQ SCH (21:22)
[2020-08-06] MEDS: methylPREDNISolone SOD SUCC 125 MG/2 ML IVPush SCH ×2 (00:47→08:06)
[2020-08-06] MEDS: DOXYCYCLINE 100 MG in DEXTROSE 5% 250 ML IV SCH (00:47)
[2020-08-06 01:20] VITALS: BP 124/82
[2020-08-06] MEDS: ACETAMINOPHEN 500 MG TABLET PO PRN (05:03)
[2020-08-06] MEDS: ALBUTEROL HFA 90 MCG/SPRAY INH SCH (05:53)
[2020-08-06] MEDS: VANCOMYCIN 1,500 MG in SODIUM CHLORIDE 0.9% 250 ML IV SCH (05:54)
[2020-08-06 08:31] VITALS: BP 157/97
[2020-08-06] MEDS ORDERED: LACT1TAB13 PO (08:50)
[2020-08-06] MEDS ORDERED: DOXY100T PO (08:50)
[2020-08-06] MEDS ORDERED: DOXYCYCLINE 100MG TABLET PO SCH (09:00)
== END 2020-08-06 10:44 | disposition home or self-care (01) | DRG 193 ==
LOC: ED 12:46 → SUATTDRO 16:30 → EDIP 19:33 → 3WST 08-04 11:00 → 4WST 08-04 19:48
PROVIDERS: ADMIT Family Medicine; ATTEND Internal Medicine
DX: J18.9 Pneumonia, unspecified organism (principal); J96.20 Acute and chronic respiratory failure, unspecified whether with hypoxia or hypercapnia; J44.1 Chronic obstructive pulmonary disease with (acute) exacerbation; I50.32 Chronic diastolic (congestive) heart failure; J44.0 Chronic obstructive pulmonary disease with (acute) lower respiratory infection; L97.909 Non-pressure chronic ulcer of unspecified part of unspecified lower leg with unspecified severity; I11.0 Hypertensive heart disease with heart failure; T38.0X5A Adverse effect of glucocorticoids and synthetic analogues, initial encounter; Z20.822 Contact with and (suspected) exposure to COVID-19; I87.2 Venous insufficiency (chronic) (peripheral); Y92.89 Other specified places as the place of occurrence of the external cause; Z88.5 Allergy status to narcotic agent; Z88.0 Allergy status to penicillin; Z88.8 Allergy status to other drugs, medicaments and biological substances; Z89.021 Acquired absence of right finger(s)
CPT/HCPCS: 36415; 71045; 80048; 80053; 80202; 83735; 83880; 84484; 85025; 87635; 93005; 96374; 99285; G0378; J1650; J1940; J3370; J7060; J7613; J2930; J7050; U0003

== ENCOUNTER 2020-08-14 08:24 | Emergency (ER) | payer MEDICARE ==
[~2020-08-14] VITALS: Ht 157.5 cm; Wt 73.0 kg
[~2020-08-14 08:24] MED LIST changes: +LACT1TAB13 PO
[2020-08-14 08:27] VITALS: BP 137/87
== END 2020-08-14 09:02 | disposition home or self-care (01) ==
LOC: ED 08:59
DX: S61.216D Laceration without foreign body of right little finger without damage to nail, subsequent encounter (principal); X58.XXXD Exposure to other specified factors, subsequent encounter
CPT/HCPCS: 99281

== ENCOUNTER 2020-10-02 03:39 | Emergency (ER) | payer MEDICARE ==
[~2020-10-02] VITALS: Ht 160 cm; Wt 105.0 kg
[2020-10-02 03:41] VITALS: BP 145/89
--- NOTE | 2020-10-02 03:46 | NUR ---
Pt is fully ambulatory with her scootergianna informed pt that taking a swig of calamine was not dangerous and there was no reason for transport. Pt insisted she be taken via medics to our ER for evalutation of small amt of calamine ingestion. Pt has no other complaints. VSS.
--- NOTE | 2020-10-02 03:52 | NUR ---
Dr Garces interview/examine pt now.
== END 2020-10-02 04:24 | disposition home or self-care (01) ==
LOC: ED 04:00
DX: T49.3X5A Adverse effect of emollients, demulcents and protectants, initial encounter (principal); I11.0 Hypertensive heart disease with heart failure; I50.9 Heart failure, unspecified; J44.9 Chronic obstructive pulmonary disease, unspecified; Z87.891 Personal history of nicotine dependence; Y92.9 Unspecified place or not applicable
CPT/HCPCS: 99283

== ENCOUNTER 2020-10-18 05:36 | Emergency (ER) | payer MEDICARE ==
[~2020-10-18] VITALS: Ht 157.5 cm; Wt 62.0 kg
[2020-10-18 05:38] VITALS: BP 107/72
[2020-10-18] MEDS ORDERED: CARBAMIDE PEROXIDE EAR DROPS 6.5%, 15ML ONE (05:54)
[2020-10-18] MEDS ORDERED: CARBAMIDE PEROXIDE EAR DROPS 6.5%, 15ML RIGHT EAR ONE (06:00)
== END 2020-10-18 07:43 | disposition home or self-care (01) ==
LOC: ED 06:00
DX: H61.21 Impacted cerumen, right ear (principal); J44.9 Chronic obstructive pulmonary disease, unspecified; F17.210 Nicotine dependence, cigarettes, uncomplicated; I11.0 Hypertensive heart disease with heart failure; I50.9 Heart failure, unspecified; Z88.0 Allergy status to penicillin; Z88.2 Allergy status to sulfonamides; Z88.8 Allergy status to other drugs, medicaments and biological substances; Z88.5 Allergy status to narcotic agent
CPT/HCPCS: 99282

== ENCOUNTER 2020-11-03 19:31 | Emergency (ER) | payer MEDICARE ==
[~2020-11-03] VITALS: Ht 157.5 cm; Wt 65.0 kg
[2020-11-03 19:56] LABS: BASOPHILS % (AUTO) 1 % (0-1); EOSINOPHILS % (AUTO) 1 % (1-7); LYMPHOCYTES % (AUTO) 13 % (22-44); MEAN CORPUSCULAR HEMOGLOBIN 30.4 pg (27.0-34.8); MEAN CORPUSCULAR HGB CONC 33.1 g/dL (32.4-35.8); MEAN PLATELET VOLUME 8.2 fL (7.4-10.4); MONOCYTES % (AUTO) 5 % (2-9); NEUTROPHILS % (AUTO) 80 % (42-75); PLATELET COUNT 343 x10^3/uL (130-400); RED BLOOD COUNT 4.37 x10^6/uL (3.82-5.3); RED CELL DISTRIBUTION WIDTH 15.1 % (9.6-15.2)
[2020-11-03 20:16] LABS: MD SCAN
[2020-11-03 20:18] LABS: ALANINE AMINOTRANSFERASE 31 U/L (12-78); ALBUMIN 3.4 g/dL (3.4-5.0); ANION GAP 7 mmol/L (5-15); CALCIUM 9.6 mg/dL (8.5-10.1); CHLORIDE 105 mmol/L (98-107); CREATININE 0.76 mg/dL (0.55-1.02)
[2020-11-03 20:22] LABS: ALKALINE PHOSPHATASE 93 U/L (45-117); BILIRUBIN,TOTAL 0.6 mg/dL (0.2-1.0); TOTAL PROTEIN 7.2 g/dL (6.4-8.2)
[2020-11-03] MEDS ORDERED: DOXYCYCLINE 100MG TABLET PO ONE (21:00)
[2020-11-03 21:26] VITALS: BP 167/90
--- NOTE | 2020-11-03 21:27 | NUR ---
REVIEWED MEDICATON PLAN, SXS TO WATCH FOR, IMPORTANCE OF ELEVATION OF LEGS WHEN NOT AMBULATING, WATCHING SALT INTAKE
== END 2020-11-03 21:29 | disposition home or self-care (01) ==
LOC: ED 21:10
DX: I87.2 Venous insufficiency (chronic) (peripheral) (principal); L03.116 Cellulitis of left lower limb; M79.662 Pain in left lower leg; M79.672 Pain in left foot; J43.9 Emphysema, unspecified; R00.9 Unspecified abnormalities of heart beat; I11.0 Hypertensive heart disease with heart failure; I50.9 Heart failure, unspecified; E66.01 Morbid (severe) obesity due to excess calories; Z68.26 Body mass index [BMI] 26.0-26.9, adult
CPT/HCPCS: 36415; 71045; 80053; 83880; 85025; 99284

== ENCOUNTER 2020-12-18 12:04 | Emergency (ER) | payer MEDICARE ==
[~2020-12-18] VITALS: Ht 157.5 cm; Wt 104.7 kg
--- NOTE | 2020-12-18 12:31 | NUR ---
THROUGHPUT RN: CALL TO EHSAN VELIZ, REQUEST TO SEE/ASSESS PT
[2020-12-18 12:42] LABS: BASOPHILS % (AUTO) 1 % (0-1); EOSINOPHILS % (AUTO) 1 % (1-7); LYMPHOCYTES % (AUTO) 20 % (22-44); MEAN CORPUSCULAR HEMOGLOBIN 30.1 pg (27.0-34.8); MEAN PLATELET VOLUME 8.1 fL (7.4-10.4); MONOCYTES % (AUTO) 5 % (2-9); NEUTROPHILS % (AUTO) 73 % (42-75); PLATELET COUNT 423 x10^3/uL (130-400); RED CELL DISTRIBUTION WIDTH 15.7 % (9.6-15.2)
[2020-12-18 12:54] LABS: CHLORIDE 101 mmol/L (98-107)
[2020-12-18 12:55] LABS: ALBUMIN 3.4 g/dL (3.4-5.0); ANION GAP 6 mmol/L (5-15); CALCIUM 10.2 mg/dL (8.5-10.1); CREATININE 0.77 mg/dL (0.55-1.02)
[2020-12-18 14:18] VITALS: BP 146/79
== END 2020-12-18 14:21 | disposition home or self-care (01) ==
LOC: ED 12:39
DX: I87.2 Venous insufficiency (chronic) (peripheral) (principal); R60.0 Localized edema; I11.0 Hypertensive heart disease with heart failure; I50.9 Heart failure, unspecified; J43.9 Emphysema, unspecified; Z87.891 Personal history of nicotine dependence
CPT/HCPCS: 36415; 80048; 82040; 83880; 85025; 99283

== ENCOUNTER 2021-01-06 12:14 | Emergency (ER) | payer MEDICARE ==
[~2021-01-06] VITALS: Ht 162.6 cm; Wt 88.0 kg
[2021-01-06 12:15] VITALS: BP 144/78
--- NOTE | 2021-01-06 12:23 | NUR ---
patient arrives from home after she had a fall this morning and fell on outstreched hand, right. she has pain to right wrist. medics report that they responded initially and she refused to go with them secondary to her cigerettes being dropped off. then later she called ems for medical help with wrist. she is on oxygen around clock. She is requesting tv, crackers, sandwich, water and pain meds. wrist has no visible deformities/no skin wounds. She is angry that until she is assessed by MD she can't yet have food/drinks/snacks/pain meds
--- NOTE | 2021-01-06 13:44 | NUR ---
Vaishnavi PRINCE AT [facility] TO DISCUSS POC
--- NOTE | 2021-01-06 13:54 | NUR ---
discharge instructions reviewed
== END 2021-01-06 14:18 | disposition home or self-care (01) ==
LOC: ED 13:56
DX: S63.521A Sprain of radiocarpal joint of right wrist, initial encounter (principal); W01.0XXA Fall on same level from slipping, tripping and stumbling without subsequent striking against object, initial encounter; Y93.89 Activity, other specified; Y92.009 Unspecified place in unspecified non-institutional (private) residence as the place of occurrence of the external cause; Y99.8 Other external cause status; I11.0 Hypertensive heart disease with heart failure; I50.9 Heart failure, unspecified; J43.9 Emphysema, unspecified
CPT/HCPCS: 29125; 99283

== ENCOUNTER 2021-01-10 08:53 | Emergency (ER) | payer MEDICARE ==
[~2021-01-10] VITALS: Ht 157.5 cm; Wt 84.0 kg
--- NOTE | 2021-01-10 08:58 | NUR ---
Pt arrived at 0853 by EMS, stood up and transferred with steady gait from EMS rbethany to ER bed, changed into gown, 12 lead EKG performed and placed on continuous bedside monitoring, and O2 remains at 2L/min NC as per her continuous home O2 needs. Call light in reach, warm blanket provided and pt notified she cannot have food/drink as requested multiple times since arrival until MD exam is completed and he/she states it is okay.
--- NOTE | 2021-01-10 09:10 | NUR ---
MD at bedside with exam completed. States okay to give pt food/drink at this time.
--- NOTE | 2021-01-10 09:13 | NUR ---
Pt call light answered. Pt asking if she can have food/drink. Pt informed of EMS arrival in need of RN check in and will be able to get her something when RN available.
--- NOTE | 2021-01-10 09:35 | NUR ---
machine packaging technician at bedside for draw. Call light answered with pt requesting food. Pt informed of delay secondary to RN availability.
--- NOTE | 2021-01-10 09:45 | NUR ---
Call light answered and pt states she lives in a small apt that will cause her to if she is sent home today and asking if there are any senior day cares available to go to if she is d/c'd this A.M. Pt notified that senior centers are not open on Sundays in this critical access hospital.
--- NOTE | 2021-01-10 09:51 | NUR ---
Call light answered again. Pt states she does not need to use the restroom currently but is wanting a BSC brought in for possible future use.
[2021-01-10 09:55] LABS: BASOPHILS % (AUTO) 1 % (0-1); EOSINOPHILS % (AUTO) 3 % (1-7); LYMPHOCYTES % (AUTO) 26 % (22-44); MEAN CORPUSCULAR HEMOGLOBIN 29.9 pg (27.0-34.8); MEAN CORPUSCULAR HGB CONC 32.9 g/dL (32.4-35.8); MEAN PLATELET VOLUME 8.7 fL (7.4-10.4); MONOCYTES % (AUTO) 6 % (2-9); NEUTROPHILS % (AUTO) 64 % (42-75); PLATELET COUNT 380 x10^3/uL (130-400); RED BLOOD COUNT 4.55 x10^6/uL (3.82-5.3); RED CELL DISTRIBUTION WIDTH 16.1 % (9.6-15.2)
--- NOTE | 2021-01-10 10:00 | NUR ---
Call light answered. Pt provided second warm blanket and med rec completed with pt stating she does not take any medications at home daily.
[2021-01-10 10:05] LABS: CHLORIDE 103 mmol/L (98-107)
[2021-01-10 10:06] LABS: ALANINE AMINOTRANSFERASE 29 U/L (12-78); ALBUMIN 3.4 g/dL (3.4-5.0); ANION GAP 6 mmol/L (5-15); CALCIUM 10.5 mg/dL (8.5-10.1)
[2021-01-10 10:11] LABS: ALKALINE PHOSPHATASE 89 U/L (45-117); BILIRUBIN,TOTAL 0.4 mg/dL (0.2-1.0); TOTAL PROTEIN 7.6 g/dL (6.4-8.2); TROPONIN I < 0.015 ng/mL (0.000-0.045)
--- NOTE | 2021-01-10 10:14 | NUR ---
Call light answered and found pt asleep when entering into the room.
--- NOTE | 2021-01-10 10:20 | NUR ---
Lab results reviewed and noted elevated WBC's. Chart marked for recheck by MD at this time. Crackers and coffe brought into pt at this time.
--- NOTE | 2021-01-10 10:40 | NUR ---
Pt assisted into her clothing, onto wheelchair with O2 at 2L/min and to the restroom.
--- NOTE | 2021-01-10 10:52 | NUR ---
Pt assisted from restroom to d/c desk with cab voucher to get home.
[2021-01-10 10:53] VITALS: BP 112/78
== END 2021-01-10 10:56 | disposition home or self-care (01) ==
LOC: ED 09:01
DX: R10.11 Right upper quadrant pain (principal); R10.13 Epigastric pain; R94.31 Abnormal electrocardiogram [ECG] [EKG]; I11.0 Hypertensive heart disease with heart failure; I50.9 Heart failure, unspecified; J44.9 Chronic obstructive pulmonary disease, unspecified; Z88.0 Allergy status to penicillin
CPT/HCPCS: 36415; 80053; 83690; 84484; 85025; 93005; 99284

== ENCOUNTER 2021-01-16 01:10 | Emergency (ER) | payer MEDICARE ==
[~2021-01-16] VITALS: Ht 160 cm; Wt 102.0 kg
--- NOTE | 2021-01-16 02:10 | NUR ---
placed pt on cardiac monitors, erp at bedside for eval. took off pt's socks and melony bandage on left leg. pt has very poor pedal hygiene. educated pt on need to wash feet. vss, given some ice chips. ok per erp
--- NOTE | 2021-01-16 02:22 | NUR ---
PT TO ULTRASOUND
--- NOTE | 2021-01-16 03:01 | NUR ---
PT BACK FROM ULTRASOUND, ON PHONE WITH SOMEONE. NO S/S OF DISTRESS, PT ON ALL MONITORS
[2021-01-16 03:23] LABS: BASOPHILS % (AUTO) 1 % (0-1); EOSINOPHILS % (AUTO) 1 % (1-7); LYMPHOCYTES % (AUTO) 23 % (22-44); MEAN CORPUSCULAR HEMOGLOBIN 30.1 pg (27.0-34.8); MEAN CORPUSCULAR HGB CONC 33.1 g/dL (32.4-35.8); MEAN PLATELET VOLUME 8.8 fL (7.4-10.4); MONOCYTES % (AUTO) 5 % (2-9); NEUTROPHILS % (AUTO) 70 % (42-75); PLATELET COUNT 384 x10^3/uL (130-400); RED BLOOD COUNT 4.51 x10^6/uL (3.82-5.3); RED CELL DISTRIBUTION WIDTH 16.5 % (9.6-15.2)
[2021-01-16 03:32] LABS: TROPONIN I < 0.015 ng/mL (0.000-0.045)
--- NOTE | 2021-01-16 04:16 | NUR ---
PT CALLING MULIPLE TIMES REQUESTING COFFEE AND FOOD. EXPLAINED TO PT THAT WE ARE WAITING ON RESULTS TO COME BACK BEFORE WE CAN GIVE ANY FOOD OR BEVARAGES. 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
[2021-01-16 05:03] LABS: ANION GAP 4 mmol/L (5-15); CALCIUM 9.3 mg/dL (8.5-10.1); CHLORIDE 100 mmol/L (98-107)
[2021-01-16 05:04] LABS: CREATININE 0.66 mg/dL (0.55-1.02)
[2021-01-16] MEDS ORDERED: BUMETANIDE 1 MG TABLET PO ONE (05:28)
[2021-01-16] MEDS ORDERED: POTASSIUM CHLORIDE 20 MEQ TAB.ER.PRT PO ONE (05:30)
[2021-01-16 05:39] VITALS: BP 106/72
[2021-01-16] MEDS ORDERED: POTASSIUM CHLORIDE 20 MEQ TAB.ER.PRT ONE (05:41)
== END 2021-01-16 06:09 | disposition home or self-care (01) ==
LOC: ED 05:50
DX: J44.1 Chronic obstructive pulmonary disease with (acute) exacerbation (principal); R60.0 Localized edema; E87.6 Hypokalemia; Z72.9 Problem related to lifestyle, unspecified; I11.0 Hypertensive heart disease with heart failure; I50.9 Heart failure, unspecified; F17.210 Nicotine dependence, cigarettes, uncomplicated; E66.01 Morbid (severe) obesity due to excess calories; Z68.39 Body mass index [BMI] 39.0-39.9, adult
CPT/HCPCS: 36415; 71045; 80048; 83880; 84484; 85025; 93005; 93970; 99285

== ENCOUNTER 2021-01-17 22:25 | Emergency (ER) | payer MEDICARE ==
[~2021-01-17] VITALS: Ht 158.8 cm; Wt 63.6 kg
--- NOTE | 2021-01-17 22:52 | NUR ---
LISSETTE CHAMORRO IN TO [facility] PT. AND DISCUSS POC.
[2021-01-17] MEDS ORDERED: SODIUM CHLORIDE FLUSH 10ML SYR IVF ONE (23:00)
[2021-01-17 23:21] LABS: BASOPHILS % (AUTO) 1 % (0-1); EOSINOPHILS % (AUTO) 1 % (1-7); LYMPHOCYTES % (AUTO) 17 % (22-44); MEAN CORPUSCULAR HGB CONC 33.5 g/dL (32.4-35.8); MEAN PLATELET VOLUME 8.6 fL (7.4-10.4); MONOCYTES % (AUTO) 6 % (2-9); NEUTROPHILS % (AUTO) 75 % (42-75); PLATELET COUNT 366 x10^3/uL (130-400); RED BLOOD COUNT 4.49 x10^6/uL (3.82-5.3); RED CELL DISTRIBUTION WIDTH 16.7 % (9.6-15.2)
[2021-01-17 23:27] LABS: ALANINE AMINOTRANSFERASE 33 U/L (12-78); ALBUMIN 3.3 g/dL (3.4-5.0); CREATININE 0.74 mg/dL (0.55-1.02)
[2021-01-17 23:31] LABS: ALKALINE PHOSPHATASE 97 U/L (45-117); BILIRUBIN,TOTAL 0.6 mg/dL (0.2-1.0); TOTAL PROTEIN 7.5 g/dL (6.4-8.2); TROPONIN I < 0.015 ng/mL (0.000-0.045)
[2021-01-17 23:35] LABS: ANION GAP 4 mmol/L (5-15); CHLORIDE 98 mmol/L (98-107)
[2021-01-18] MEDS ORDERED: BUMETANIDE 0.25 MG/ML, 4ML IV ONE (00:30)
[2021-01-18] MEDS ORDERED: CEFTRIAXONE 1,000 MG in DEXTROSE 5% 50 ML IVPB ONE (00:30)
[2021-01-18] MEDS ORDERED: AZITHROMYCIN 500 MG in SODIUM CHLORIDE 0.9% 250 ML IV ONE (00:30)
[2021-01-18] MEDS ORDERED: POTASSIUM CHLORIDE 20 MEQ TAB.ER.PRT PO ONE (00:30)
--- NOTE | 2021-01-18 00:56 | NUR ---
LATE ENTRY: 2 SETS OF BLOOD CULTURES WERE DRAWN PRIOR TO IV ABX. PT. HAS BEEN MEDICATED PER AUG. BSC AT BS FOR PT. PT. IS STEADY ON HER FEET.
[2021-01-18] MEDS ORDERED: ALBUTEROL/IPRATROPIUM 2.5MG/0.5MG, 3 ML NEB PRN (01:00)
[2021-01-18] MEDS ORDERED: ACETAMINOPHEN 325 MG TABLET PO PRN (01:00)
[2021-01-18] MEDS ORDERED: DOXYCYCLINE 100 MG in DEXTROSE 5% 250 ML IV SCH (01:00)
[2021-01-18] MEDS ORDERED: ENOXAPARIN 40 MG/0.4 ML SQ SCH (01:00)
[2021-01-18] MEDS ORDERED: TEMAZEPAM 15 MG CAPSULE PO PRN (01:00)
[2021-01-18] MEDS ORDERED: ONDANSETRON 2MG/ML, 2ML IVPush PRN (01:00)
[2021-01-18] MEDS ORDERED: ENALAPRILAT 1.25 MG/ML, 2ML IVPush PRN (01:00)
[2021-01-18] MEDS ORDERED: DOCUSATE 100 MG CAPSULE PO PRN (01:00)
[2021-01-18] MEDS ORDERED: OXYcodone IR 5MG TABLET PO PRN (01:00)
[2021-01-18] MEDS ORDERED: POTASSIUM CHLORIDE 20 MEQ TAB.ER.PRT ONE (01:01)
--- NOTE | 2021-01-18 02:36 | NUR ---
PT. TO BE A HOLD IN ED. INFORMED PT. THAT WE WILL GET HER A HOSPITAL BED; PT. IS REFUSING HOSPITAL BED STATING "THOSE THINGS ARE SO UNCOMFORTABLE AND I AM MORE COMFORTABLE ON THIS ONE." PT. VERBALIZED UNDERSTANDING THAT ONE WILL BE AVAILABLE FOR HER IF SHE CHANGES HER MIND.
--- NOTE | 2021-01-18 03:00 | NUR ---
PT. ASSISTED TO [facility] AND BACK TO [facility].
[2021-01-18] MEDS ORDERED: ENOXAPARIN 40 MG/0.4 ML ONE (03:22)
[2021-01-18] MEDS ORDERED: ACETAMINOPHEN 325 MG TABLET ONE (03:22)
--- NOTE | 2021-01-18 03:34 | NUR ---
PT. ASSISTED TO BSC AND BACK TO [facility]. MEDICATED PER AUG.
--- NOTE | 2021-01-18 04:30 | NUR ---
PT. ASSISTED TO BS AND BACK TO [facility]. PT. CONTINUES TO DECLINE HOSPITAL BED AT THIS TIME.
--- NOTE | 2021-01-18 05:28 | NUR ---
PT. NOW REQUESTING HOSPITAL BED. CALLED HOUSEKEEPING TO REQUEST BED. MESSAGE LEFT FOR [facility] ABOUT LOW B/P. AWAITING CALL BACK. PT. NON-SYMPTOMATIC WITH LOW B/P.
--- NOTE | 2021-01-18 05:35 | NUR ---
CALL BACK FROM [facility]: TELEPHONE ORDER FOR 500ML NS BOLUS; REPEAT B/P. IF IMPROVED NO FUTHER IVF, IF NOT IMPROVED HANG 2ND 500ML NS BOLUS.
--- NOTE | 2021-01-18 06:18 | NUR ---
PT. PLACED ON HOSPITAL BED. IVF INFUSING PER ORDER. CALL LIGHT IN REACH. ALL SAFETY MEASURES MAINTAINED.
[2021-01-18] MEDS ORDERED: SODIUM CHLORIDE FLUSH 0.9%, 20 ML IVF SCH (06:30)
--- NOTE | 2021-01-18 06:54 | NUR ---
500ML BOLUS COMPLETED AT THIS TIME.
[2021-01-18] MEDS ORDERED: SODIUM CHLORIDE 0.9%, 500ML IVBOLUS ONE (07:00)
--- NOTE | 2021-01-18 07:15 | NUR ---
REPORT FROM DERECK RN WITH ASSESSMENT PATIENT APPEARS WELL; HOWEVER BLOOD PRESSURE REMAINS 100/60 POST 500ML BOLUS. PATIENT ENCOURAGED TO LAY BACK (MODIFIED [place]). HOSPITALIST PAGED
[2021-01-18] MEDS ORDERED: LACTOBACILLUS CHEW TABLET PO SCH (09:00)
[2021-01-18] MEDS ORDERED: BUMETANIDE 0.25 MG/ML, 4ML IV SCH (09:00)
--- NOTE | 2021-01-18 09:16 | NUR ---
DR. BENTON UPDATED ON PATIENTS BLOOD PRESSURE TREND (ALTHOUGH IMPROVED AT THIS TIME), FLUID STATUS (HAS BEEN VOIDING INCESSANTLY POST BUMEX ADMIN) & PATIENT'S NON-COMPLIANCE WITH BUMEX ADMIN AT HOME. VERBAL ORDERS RECEIVED TO HOLD AM BUMEX ADMINISTRATION pATIENT ATE ALL OF BREAKFAST AND B/P IMPROVED PATIENT HAS HIT CALL LIGHT 45 TIMES TIME AM. EACH TIME KINDLY RE-DIRECTED.
--- NOTE | 2021-01-18 10:43 | NUR ---
PATIENT'S BP IMPROVED/NO OBVIOUS DEFICITS AND THEN THOROUGH REVIEW OF PATIENT'S TESTING/HISTORY/EXAM. ERP CALLED TO RE-EVAL PATIENT PATIENT ASKING TO GO HOME. ERP AGREEABLE. TO COME ASSESS
[2021-01-18] MEDS ORDERED: METH4TAB2 PO (11:12)
[2021-01-18] MEDS ORDERED: AZIT500T10 PO (11:13)
[2021-01-18 12:39] VITALS: BP 104/62
--- NOTE | 2021-01-18 13:13 | NUR ---
DISCHARGED HOME IN COMPANY OF DAUGHTER AFTER EXAM BY HOSPITALIST DR. BENTON. PATIENT INSTRUCTED ON HEALTHY EATING/EXERCISE HABITS TO IMPROVE HABITUS/FLUID BALANCE. TEACH BACK SUCCESSFUL
== END 2021-01-18 13:16 | disposition home or self-care (01) ==
LOC: ED 23:50 → EDIP 01-18 00:39 → UNDOADMIN 01-18 00:39 → ED 01-18 13:16
DX: I11.0 Hypertensive heart disease with heart failure (principal); I50.9 Heart failure, unspecified; R06.00 Dyspnea, unspecified; J15.8 Pneumonia due to other specified bacteria; R09.02 Hypoxemia; J43.9 Emphysema, unspecified; D72.829 Elevated white blood cell count, unspecified; Z72.9 Problem related to lifestyle, unspecified; Z87.891 Personal history of nicotine dependence; E66.01 Morbid (severe) obesity due to excess calories; Z68.25 Body mass index [BMI] 25.0-25.9, adult
CPT/HCPCS: 36415; 71045; 80053; 83880; 84484; 85025; 87040; 93005; 96365; 96367; 96372; 96375; 99285; J0456; J0696; J1650; J7040; J7050; J7060

== ENCOUNTER 2021-01-28 21:39 | Emergency (ER) | payer MEDICARE ==
[~2021-01-28 21:39] MED LIST changes: +AZIT500T10 PO; +METH4TAB2 PO
--- NOTE | 2021-01-28 21:51 | NUR ---
PT ARRIVED TO ROOM. IMMEDIATELY STATED SHE NEEDS WATER, [place]URKA CRACKERS AND SOME WARM BLANKETS. PT SETTLED INTO BED AND TOLD MD WILL BE IN TO SEE HER, AND PT IS IN NO ACUTE DISTRESS AT THIS TIME. EASY RESPIRATIONS
[2021-01-28 22:24] LABS: ANION GAP 8 mmol/L (5-15); CALCIUM 10.1 mg/dL (8.5-10.1); CHLORIDE 95 mmol/L (98-107); CREATININE 0.79 mg/dL (0.55-1.02)
[2021-01-28 22:25] LABS: MEAN PLATELET VOLUME 8.4 fL (7.4-10.4)
[2021-01-28 22:28] LABS: TROPONIN I < 0.015 ng/mL (0.000-0.045)
[2021-01-28] MEDS ORDERED: POTASSIUM CHLORIDE 20 MEQ TAB.ER.PRT ONE (22:36)
[2021-01-28 22:43] LABS: BASOPHILS % (AUTO) 0 % (0-1); EOSINOPHILS % (AUTO) 1 % (1-7); LYMPHOCYTES % (AUTO) 23 % (22-44); MEAN CORPUSCULAR HEMOGLOBIN 29.7 pg (27.0-34.8); MEAN CORPUSCULAR HGB CONC 33.3 g/dL (32.4-35.8); MONOCYTES % (AUTO) 6 % (2-9); NEUTROPHILS % (AUTO) 70 % (42-75); PLATELET COUNT 418 x10^3/uL (130-400); RED BLOOD COUNT 4.42 x10^6/uL (3.82-5.3); RED CELL DISTRIBUTION WIDTH 16.7 % (9.6-15.2)
[2021-01-28] MEDS ORDERED: POTASSIUM CHLORIDE 20 MEQ TAB.ER.PRT PO ONE (23:00)
--- NOTE | 2021-01-28 23:02 | NUR ---
MD TO BEDSIDE TO EVAL PT, AND SPEAK WITH HER ABOUT HER RESULTS.
--- NOTE | 2021-01-28 23:28 | NUR ---
F/U AND D/C INSTRUCTIONS GIVEN TO PT AND SHE V/U. PT D/C'D AND TAKEN TO DISCHARGE DESK VIA WHEELCHAIR AND PROVIDED WITH CAB VOUCHER TO GET HOME.
== END 2021-01-28 23:35 | disposition home or self-care (01) ==
LOC: ED 22:09
DX: R06.00 Dyspnea, unspecified (principal); J44.9 Chronic obstructive pulmonary disease, unspecified; R60.0 Localized edema; R07.89 Other chest pain; R94.31 Abnormal electrocardiogram [ECG] [EKG]; I11.0 Hypertensive heart disease with heart failure; I50.9 Heart failure, unspecified; Z87.891 Personal history of nicotine dependence
CPT/HCPCS: 36415; 71045; 80048; 82040; 84484; 85025; 93005; 99285

== ENCOUNTER 2021-02-14 12:28 | Emergency (ER) | payer MEDICARE ==
[~2021-02-14] VITALS: Ht 158.8 cm; Wt 103.7 kg
[2021-02-14 13:09] VITALS: BP 109/68
--- NOTE | 2021-02-14 13:10 | NUR ---
piece hand: pt reports that she has been seen "at all three hospitals" pt reports that she needs a cab voucher "because they always give me one when I come here"
== END 2021-02-14 13:33 | disposition home or self-care (01) ==
LOC: ED 13:15
DX: Z00.00 Encounter for general adult medical examination without abnormal findings (principal); I11.0 Hypertensive heart disease with heart failure; I50.9 Heart failure, unspecified; J44.9 Chronic obstructive pulmonary disease, unspecified; F17.200 Nicotine dependence, unspecified, uncomplicated
CPT/HCPCS: 99283

== ENCOUNTER 2021-03-10 21:36 | Emergency (ER) | payer MEDICARE ==
[~2021-03-10] VITALS: Ht 157.5 cm; Wt 103.0 kg
[~2021-03-10 21:36] MED LIST changes: +POTA-143 PO; -POTA20TA6 PO
[2021-03-10 21:53] VITALS: BP 105/70
[2021-03-10 22:49] LABS: BASOPHILS % (AUTO) 1 % (0-1); EOSINOPHILS % (AUTO) 2 % (1-7); LYMPHOCYTES % (AUTO) 22 % (22-44); MEAN CORPUSCULAR HEMOGLOBIN 29.7 pg (27.0-34.8); MEAN CORPUSCULAR HGB CONC 32.9 g/dL (32.4-35.8); MEAN PLATELET VOLUME 8.3 fL (7.4-10.4); MONOCYTES % (AUTO) 5 % (2-9); NEUTROPHILS % (AUTO) 71 % (42-75); PLATELET COUNT 385 x10^3/uL (130-400); RED BLOOD COUNT 4.47 x10^6/uL (3.82-5.3); RED CELL DISTRIBUTION WIDTH 16.7 % (9.6-15.2)
[2021-03-10 23:00] LABS: ANION GAP 6 mmol/L (5-15); CALCIUM 10.1 mg/dL (8.5-10.1); CHLORIDE 96 mmol/L (98-107); CREATININE 0.74 mg/dL (0.55-1.02)
[2021-03-10 23:05] LABS: TROPONIN I < 0.015 ng/mL (0.000-0.045)
== END 2021-03-10 23:41 | disposition home or self-care (01) ==
LOC: ED 21:56
DX: R42 Dizziness and giddiness (principal); R55 Syncope and collapse; R94.31 Abnormal electrocardiogram [ECG] [EKG]; J44.9 Chronic obstructive pulmonary disease, unspecified; I50.9 Heart failure, unspecified; Z87.891 Personal history of nicotine dependence
CPT/HCPCS: 36415; 80048; 82040; 84484; 85025; 93005; 99284